=== PATIENT | female | born 1990 | race Caucasian/White ===

== ENCOUNTER 2019-11-25 15:43 | Emergency (ER) | payer OTHER, SELFPAY ==
[2019-11-25 16:31] VITALS: BP 124/76; PULSE 82; RESP 16; TEMP 37.4; O2SAT 99
--- NOTE | 2019-11-25 17:13 | ED.URI ---
HPI - URI/Sore Throat General Chief Complaint: Upper Respiratory Infection Stated Complaint: Cold/Flu symptoms Time Seen by Provider: 11/25/19 16:55 Source: patient and RN notes reviewed Mode of arrival: ambulatory Limitations: no limitations History of Present Illness HPI Narrative: 29-year-old female presents with concern for sore throat, nasal congestion, drainage, hoarseness, body aches, fatigue. Reports symptoms started on Thursday. Reports most symptoms have resolved however she still has a sore throat and hoarseness. Denies taking any medications for symptoms. MD elicited complaint: sore throat Related Data Allergies Allergy/AdvReac Type Severity Reaction Status Date / Time No Known Allergies Allergy Unverified 04/02/18 19:14 Review of Systems Review of Systems: Narrative: CONSTITUTIONAL: Reports malaise. Denies chills, sweats, or fever. EYES: Denies visual changes, redness, or discharge. ENT: Reports rhinorrhea, congestion, sore throat. Denies sinus pain, otalgia. CARDIOVASCULAR: Denies chest pain, palpitations, or edema. RESPIRATORY: Denies cough or dyspnea. GASTROINTESTINAL: Denies abdominal pain, nausea, vomiting, diarrhea SKIN: Denies rash or itching. MUSCULOSKELETAL: Denies myalgia. NEUROLOGIC: Denies headache. All systems reviewed & are unremarkable except as noted in HPI and below PMFSH Comments At time of signature, agree with nursing past medical, surgical, social and family history. There is no relevant family history pertinent to the presenting complaint Exam Narrative: Exam Narrative: GENERAL: Well-appearing, well-nourished, and in no acute distress. HEAD: Normocephalic EYES: PERRLA, conjunctivae clear ENT: Nares clear, turbinates erythematous, clear discharge. Mucous membranes moist. TM pearly curry with sharp light reflex bilaterally; no tragal tenderness. Oropharynx mildly erythematous without lesions. Tonsils not enlarged and without exudate, no drooling, no trismus. Slightly hoarse voice NECK: Supple. No lymphadenopathy CHEST: Clear to auscultation, breath sounds equal. No wheezing, rhonchi, rales, or stridor. No respiratory distress, speaks in full sentences. HEART: Regular rate and rhythm. No murmur heard. Normal peripheral pulses. SKIN: Warm, dry, no rash. NEURO: Alert and oriented x3. PSYCH: Normal mood and affect Course Course Emergency Course: Patient is aware of diagnosis, understands and agrees to treatment plan. Anticipatory guidance given. Patient agrees to follow-up as directed and is aware of reasons to seek care at the emergency department. Portions of this record may have been created with voice recognition software Vital Signs Vital signs: Vital Signs Temperature 99.3 F 11/25/19 16:31 Pulse Rate 82 11/25/19 16:31 Respiratory Rate 16 11/25/19 16:31 Blood Pressure 124/76 11/25/19 16:31 Pulse Oximetry 99 11/25/19 16:31 Temperature 99.3 F 11/25/19 16:31 Pulse Rate 82 11/25/19 16:31 Respiratory Rate 16 11/25/19 16:31 Blood Pressure 124/76 11/25/19 16:31 Pulse Oximetry 99 11/25/19 16:31 Reviewed. MDM - URI/Sore Throat MDM Narrative Medical decision making narrative: Differential diagnosis considered: Strep pharyngitis, allergic rhinitis, upper respiratory tract infection, sinusitis, rhinosinusitis, nasopharyngitis. viral pharyngitis, otitis media, otitis externa, pneumonia, bronchitis, viral cough syndrome, viral syndrome, and influenza. Exam findings show no acute concerns or changes; patient is non-toxic appearing and is in no distress. Patient is appropriate for outpatient treatment and follow-up. Lab Data Labs: Influenza A Screen Negative Reference Range: Negative Influenza B Screen Negative Reference Range: Negative Strep Screen Presumptive Negative *(Reference Range: Negative)* Critical Care Time Critical Care Time Critical Care Time: No Discharge Plan Discharge
== END 2019-11-25 17:24 | disposition home or self-care (01) ==
PROVIDERS: Emergency Provider Nurse Practitioner
DX: J10.1 Influenza due to other identified influenza virus with other respiratory manifestations (principal)
CPT/HCPCS: 87081; 87804; 87880; 99213; G0463

== ENCOUNTER 2020-03-14 16:58 | Emergency (ER) | payer OTHER, SELFPAY ==
[2020-03-14 17:04] VITALS: BP 115/72; PULSE 97; RESP 16; TEMP 37.7; O2SAT 100
--- NOTE | 2020-03-14 17:14 | ED.ABDPAIN ---
HPI - Abdominal Pain General Chief Complaint: Urogenital-Female Stated Complaint: stomach pains Time Seen by Provider: 03/14/20 17:14 Source: patient and RN notes reviewed History of Present Illness HPI narrative: Patient is a 30-year-old female who presents the urgent care with complaints of lower abdominal pain for the last 2 days. Patient also reports of burning with urination. 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 Patient states she is also had a mild low-grade fever. Patient states that she always has terrible periods and is been approximately 2 weeks since her last period. Patient states that she is not actively trying to get and her has had a vasectomy. Patient states that she has never been told that she has fibroids or endometriosis, however her periods are very heavy and she passes large clots . Patient states that she has had the lower left abdominal/pelvic discomfort off and on for the last 3 to 4 days. Patient states she also started to experience some epigastric pain and states that the pain is worse when she lays down. States that she has been eating terrible but nothing completely out of the ordinary. Patient states her last normal bowel movement was last night and she has been passing gas as normal. Patient denies of any pain with intercourse. Patient denies of any nausea or vomiting. Patient denies of any diarrhea. States that her appointment was rescheduled with her TRACK LINER OPERATOR tomorrow. No other acute complaints. No acute distress noted. Patient read the plan of care. Related Data Home Medications Medication Instructions Recorded Confirmed No Home Medications 03/14/20 03/14/20 Allergies Allergy/AdvReac Type Severity Reaction Status Date / Time No Known Allergies Allergy Unverified 03/14/20 17:12 Review of Systems Review of Systems: Narrative: CONSTITUTIONAL: Denies fever, chills, or sweats. EYES: Denies visual changes, redness, or discharge. ENT: Denies rhinorrhea, congestion, sore throat, or otalgia. CARDIOVASCULAR: Denies chest pain, palpitations, or edema. RESPIRATORY: Denies cough or dyspnea. GASTROINTESTINAL: Reports of epigastric pain and lower right abdominal pain GENITOURINARY: Reports of dysuria and mild lower right pelvic discomfort SKIN: Denies rash or itching. MUSCULOSKELETAL: Denies back pain, joint pain, or myalgia. NEUROLOGIC: Denies headache, numbness, or weakness. All other systems reviewed are negative, except as documented in HPI. PMFSH Comments At the time of my signature, I reviewed and agree with the nursing past medical, surgical, social, and family history. There is no relevant family history pertinent to the patient complaint. Exam Narrative: Exam Narrative: GENERAL: This is a well-nourished, well-developed patient, in no apparent distress. HEAD: normocephalic, atraumatic. EYES: PERRL. Sclera clear/white. Vision is grossly intact. EARS: External ears normal NOSE: External nose normal with no obvious nasal discharge, nares without redness, no rhinorrhea. THROAT: Mucous membranes moist NECK: Neck supple GASTROINTESTINAL: Abdomen soft, mild right suprapubic tenderness, mild epigastric tenderness, nondistended. Bowel sounds are active. SKIN: warm, intact with no suspicious lesions or rash, good texture and turgor. NEURO: awake, alert, and oriented to person, place and time. There were no obvious focal neurologic abnormalities. EXTREMITIES: No clubbing, cyanosis, or edema. BACK: Negative bilateral CVA tenderness Course Vital Signs Vital signs: Vital Signs Temperature 99.9 F H 03/14/20 17:04 Pulse Rate 97 03/14/20 17:04 Respiratory Rate 16 03/14/20 17:04 Blood Pressure 115/72 03/14/20 17:04 Pulse Oximetry 100 03/14/20 17:04 Temperature 99.9 F H 03/14/20 17:04 Pulse Rate 97 03/14/20 17:04 Respiratory Rate 16 03/14/20 17:04 Bloo
--- NOTE | 2020-03-14 18:06 | PC.NURSE ---
NO UC ORDERED PER DUANE
== END 2020-03-14 18:07 | disposition home or self-care (01) ==
PROVIDERS: Emergency Provider Nurse Practitioner Family
DX: R10.13 Epigastric pain (principal)
CPT/HCPCS: 81003; 81025; 99213; G0463

== ENCOUNTER 2021-01-13 18:50 | Emergency (ER) | payer OTHER, SELFPAY ==
[2021-01-13 19:00] VITALS: BP 122/71; PULSE 72; RESP 18; O2SAT 100
--- NOTE | 2021-01-13 19:12 | ED.GENADULT ---
HPI - General Adult General Chief complaint: Unspecified Stated complaint: no taste or smell Time Seen by Provider: 01/13/21 19:12 Source: patient and RN notes reviewed Mode of arrival: ambulatory Limitations: no limitations History of Present Illness HPI narrative: 30-year-old female presents with complaints of loss of smell and taste for the past 4 hours. Nhan report attempting to eat jalapeno chips and was unable to taste them tried to eat something else and was able unable to taste or smell it either. No treatment. 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 Denies cough without chest congestion. Denies rhinorrhea and nasal congestion. Exacerbating factors consist of swallowing. No high fevers, chills, or sweats. No nausea, vomiting, diarrhea, and abdominal pain. Tolerating po intake well. Denies chest pain, coughing up blood and rash. The patient reports she have not been diagnosed with COVID-19. The patient reports she is not waiting for the results of a COVID-19 lab test. Denies recent traveling. Nhan has concerns for COVID-19 due to possible exposures At this time, patient is suspected of having COVID-19. Some parts of this dictation were generated by voice recognition software and may contain typographical and/or grammatical inaccuracies. Related Data Home Medications Medication Instructions Recorded Confirmed No Home Medications 03/14/20 01/13/21 Allergies Allergy/AdvReac Type Severity Reaction Status Date / Time No Known Allergies Allergy Verified 01/13/21 19:21 Review of Systems Review of Systems: Narrative: CONSTITUTIONAL: Complains of fever, chills, sweats. EYES: Denies visual changes, redness, discharge. ENT: Complains of loss of taste and smell. Denies rhinorrhea, congestion, sore throat, otalgia. CARDIOVASCULAR: Denies chest pain, palpitations, edema. RESPIRATORY: Denies wheezing, cough. GASTROINTESTINAL: Denies abdominal pain, nausea, vomiting, diarrhea. SKIN: Denies rash or itching. MUSCULOSKELETAL: Denies acute back pain, joint pain, myalgia. NEUROLOGIC: Denies numbness or focal weakness. PSYCHIATRIC: Denies anxiety or depression. All systems reviewed & are unremarkable except as noted in HPI and below. [facility] Past Medical History Medical History (Updated 01/14/21 @ 00:00 by Hernan Davis) No significant past medical history Surgical History Surgical History (Updated 01/13/21 @ 19:33 by SUKHWINDER Zavala) No significant past surgical history Family History Family History (Updated 01/13/21 @ 19:35 by SUKHWINDER Zavala) Father Diabetes mellitus Hypercholesteremia Mother Alive and well Social History Social History (Updated 01/13/21 @ 19:36 by SUKHWINDER Zavala) Smoking status: Never smoker Tobacco type: cigarettes Second hand tobacco smoke exposure: No Alcohol intake: current Substance use: never Living arrangements: with family Additional living arrangements comments: spouse and 2 kids Occupation/Education: occupation 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 There is no relevant family history pertinent to the presenting complaint. Exam Narrative: Exam Narrative: GENERAL: This is a well-nourished, well-developed patient, in no apparent distress. Talks in full sentences and ambulates with steady gait without dyspnea. HEAD: Normocephalic, atraumatic. EYES: PERRL. Sclera clear/white. Vision is grossly intact. NOSE: External nose normal with no obvious nasal discharge, nares with mild redness, no rhinorrhea. THROAT: Mucous membranes moist
[2021-01-15 20:31] LABS: SARS-CoV-2 RNA PCR Negative
== END 2021-01-13 19:50 | disposition home or self-care (01) ==
PROVIDERS: Emergency Provider Nurse Practitioner Family
DX: R43.2 Parageusia (principal); R43.0 Anosmia; Z20.822 Contact with and (suspected) exposure to COVID-19
CPT/HCPCS: 87426; 99213; C9803; G0463; U0003; U0005

== ENCOUNTER 2021-07-03 15:50 | Emergency (ER) | payer OTHER, SELFPAY ==
--- NOTE | 2021-07-03 16:05 | ED.URI ---
HPI - URI/Sore Throat General Chief Complaint: Upper Respiratory Infection Stated Complaint: Congestion/Cough Time Seen by Provider: 07/03/21 16:05 Source: patient and RN notes reviewed History of Present Illness HPI Narrative: Patient is a 31-year-old female who presents the urgent care with complaints of cough and congestion. Patient states the cough is been ongoing for about 3 to 4 days and the congestion started last Thursday. Patient states that she test weekly for Covid at her workplace and it has been negative. Patient states she now has pain with her cough. States that she does see her PCP next week. Denies of any fever, chills, nausea, vomiting. Has not taken anything [id number] for her symptoms. No other acute complaints. No acute distress noted. Patient aware of the plan of care. Some parts of this dictation were generated by voice recognition software and may contain typographical and/or grammatical inaccuracies. Related Data Allergies Allergy/AdvReac Type Severity Reaction Status Date / Time No Known Allergies Allergy Verified 01/13/21 19:21 Review of Systems Review of Systems: CONSTITUTIONAL: Denies fever, chills, or sweats. EYES: Denies visual changes, redness, or discharge. ENT: Denies rhinorrhea, congestion, sore throat, or otalgia. Reports of postnasal drainage CARDIOVASCULAR: Denies chest pain, palpitations, or edema. RESPIRATORY: Reports of chest congestion and cough without dyspnea GASTROINTESTINAL: Denies abdominal pain, nausea, vomiting, or diarrhea. GENITOURINARY: Denies dysuria or hematuria. SKIN: Denies rash or itching. MUSCULOSKELETAL: Denies back pain, joint pain, or myalgia. NEUROLOGIC: Denies headache, numbness, or weakness. All other systems reviewed are negative, except as documented in HPI. [facility] Past Medical History Medical History (Updated 07/03/21 @ 16:37 by SUKHWINDER Gaviria) No significant past medical history Surgical History Surgical History (Updated 01/13/21 @ 19:33 by SUKHWINDER Zavala) No significant past surgical history Family History Family History (Updated 01/13/21 @ 19:35 by SUKHWINDER Zavala) Father Diabetes mellitus Hypercholesteremia Mother Alive and well Social History Social History (Updated 01/13/21 @ 19:36 by VICKI Zavala Smoking status: Never smoker Tobacco type: cigarettes Second hand tobacco smoke exposure: No Alcohol intake: current Substance use: never Additional living arrangements comments: spouse and 2 kids 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 There is no relevant family history pertinent to the patient complaint. Exam Narrative: GENERAL: This is a well-nourished, well-developed patient, in no apparent distress. HEAD: normocephalic, atraumatic. EYES: PERRL. Sclera clear/white. Vision is grossly intact. EARS: External ears normal, auditory canals clear and without drainage, TMs normal without perforation. Hearing grossly intact. NOSE: External nose normal with no obvious nasal discharge, nares without redness, no rhinorrhea. THROAT: Mucous membranes moist, posterior pharynx clear. Mild postnasal drainage NECK: Neck supple CARDIOVASCULAR: Regular rate and rhythm without murmurs, gallops, or rubs. RESPIRATORY: Clear to auscultation. Slightly diminished upper lung sounds. No wheezing. Dry cough on exam SKIN: warm, intact with no suspicious lesions or rash, good texture and turgor. NEURO: awake, alert, and oriented to person, place and time. There were no obvious focal neurologic abnormalities. EXTREMITIES: No clubbing, cyanosis, or edema. Course Vital Signs Vital signs: Vital Signs Temperature 99
[2021-07-03 16:18] VITALS: BP 110/81; PULSE 88; RESP 20; TEMP 37.3; O2SAT 100
[2021-07-03 16:29] VITALS: BP 110/81; PULSE 88; RESP 20; TEMP 37.3; O2SAT 100
== END 2021-07-03 16:53 | disposition home or self-care (01) ==
DX: J40 Bronchitis, not specified as acute or chronic (principal)
CPT/HCPCS: 99213; G0463

== ENCOUNTER 2023-01-16 09:52 | Emergency (ER) | payer OTHER, SELFPAY ==
[2023-01-16 10:03] VITALS: BP 111/62; PULSE 103; RESP 18; TEMP 37.3; O2SAT 100
--- NOTE | 2023-01-16 10:45 | ED.URI ---
HPI - URI/Sore Throat General Chief Complaint: Upper Respiratory Infection Stated Complaint: ears/throat/fever/chills Time Seen by Provider: 01/16/23 10:35 Source: patient, RN notes reviewed and old records reviewed Mode of arrival: ambulatory Limitations: no limitations History of Present Illness HPI Narrative: 32 year old female who presents to [facility] care with complaints of 2 1/2 days of sore throat, fevers, chills and some ear aches. Patient reports that she has been taking Ibuprofen and Tylenol for her symptom, is able to control secretions and denies any dysphagia or problems with her breathing. Patient reports that she has had known exposure to strep from her nephew. Patient reports that she has increased pain with swallowing MD elicited complaint: fever and sore throat Onset (ago): day(s) (2.5 days ago) Pain scale (0-10): 4 Able to tolerate fluids by mouth: Yes Exacerbating factors: swallowing Treatments prior to arrival: acetaminophen and ibuprofen Related Data Allergies Allergy/AdvReac Type Severity Reaction Status Date / Time No Known Allergies Allergy Verified 01/13/21 19:21 Review of Systems Review of Systems: CONSTITUTIONAL: Reports malaise, chills, sweats, or fever. EYES: Denies visual changes, redness, or discharge. ENT: Reports some rhinorrhea, congestion,no sinus pain,positive for otalgia and sore throat. CARDIOVASCULAR: Denies chest pain, palpitations, or edema. RESPIRATORY: Reports no cough.? Denies dyspnea. GASTROINTESTINAL: Denies abdominal pain, nausea, vomiting, diarrhea SKIN: Denies rash or itching. MUSCULOSKELETAL: Denies myalgia. NEUROLOGIC: reports headache. All systems reviewed & are unremarkable except as noted in HPI and below PMFSH Past Medical History Medical History (Updated 01/16/23 @ 10:49 by Latoya Diaz NP) No significant past medical history Surgical History Surgical History (Updated 01/13/21 @ 19:33 by SUKHWINDER Zavala) No significant past surgical history Family History Family History (Updated 01/13/21 @ 19:35 by SUKHWINDER Zavala) Father Diabetes mellitus Hypercholesteremia Mother Alive and well Social History Social History (Updated 01/13/21 @ 19:36 by SUKHWINDER Zavala) Smoking status: Never smoker Tobacco type: cigarettes Second hand tobacco smoke exposure: No Alcohol intake: current Substance use: never Living arrangements: with family Additional living arrangements comments: spouse and 2 kids Occupation/Education: occupation 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 There is no relevant family history pertinent to the presenting complaint Exam Narrative: GENERAL: Well-appearing, well-nourished, and in no acute distress. HEAD: Normocephalic EYES: PERRLA, conjunctivae clear ENT: Nares clear, turbinates edematous and erythematous, clear discharge. Mucous membranes moist. TM pearly curry with dull light reflex bilaterally; no tragal tenderness. Oropharynx erythematous without lesions. Tonsils red enlarged and with white exudate, no drooling, no hoarseness, no trismus, uvula midline. NECK: Supple. lymphadenopathy CHEST: Clear to auscultation, breath sounds equal. No wheezing, rhonchi, rales, or stridor. No respiratory distress, speaks in full sentences.SAO2 100% on room air HEART: Regular rate and rhythm. No murmur heard. SKIN: Warm, dry, no rash. NEURO: Alert and oriented x3. PSYCH: Normal mood and affect Course Course Emergency Course: Patient is aware of diagnosis, understands and agrees to treatment plan.? Anticipatory guidance given.? Patient agrees to follow-up as directed and is aware of reasons to seek care at the emergenc
== END 2023-01-16 10:56 | disposition home or self-care (01) ==
PROVIDERS: Emergency Provider Registered Nurse; PCP Family Medicine
DX: J02.0 Streptococcal pharyngitis (principal)
CPT/HCPCS: 87880; 99213; G0463

== ENCOUNTER 2023-04-24 10:12 | Emergency (ER) | payer OTHER, SELFPAY ==
--- NOTE | 2023-04-24 10:24 | ED.URI ---
HPI - URI/Sore Throat General Chief Complaint: Upper Respiratory Infection Stated Complaint: Sore Throat Time Seen by Provider: 04/24/23 10:37 Source: patient and RN notes reviewed Mode of arrival: ambulatory Limitations: no limitations History of Present Illness HPI Narrative: 33-year-old female presents with concern for sore throat cough that she has had since Thursday. She reports she has had strep throat 3 times this year and was concern for strep. She reports she has some postnasal drainage. She denies body aches, chills, fever, sweats. Denies nausea, headache. She reports she has been taking ibuprofen. MD elicited complaint: cough and sore throat Related Data Allergies Allergy/AdvReac Type Severity Reaction Status Date / Time No Known Allergies Allergy Verified 01/13/21 19:21 Review of Systems Review of Systems: CONSTITUTIONAL: Denies malaise, chills, sweats, or fever. EYES: Denies visual changes, redness, or discharge. ENT: Denies rhinorrhea, congestion, sinus pain, otalgia. Reports postnasal drainage and sore throat. CARDIOVASCULAR: Denies chest pain, palpitations, or edema. RESPIRATORY: Reports cough. Denies dyspnea. GASTROINTESTINAL: Denies abdominal pain, nausea, vomiting, diarrhea SKIN: Denies rash or itching. MUSCULOSKELETAL: Denies myalgia. NEUROLOGIC: Denies headache. All systems reviewed & are unremarkable except as noted in HPI and below PMFSH Past Medical History Medical History (Updated 04/24/23 @ 10:43 by Edie Prado NP) No significant past medical history Surgical History Surgical History (Updated 01/13/21 @ 19:33 by SUKHWINDER Zavala) No significant past surgical history Family History Family History (Updated 01/13/21 @ 19:35 by SUKHWINDER Zavala) Father Diabetes mellitus Hypercholesteremia Mother Alive and well Social History Social History (Updated 01/13/21 @ 19:36 by SUKHWINDER Zavala) Smoking status: Never smoker Tobacco type: cigarettes Second hand tobacco smoke exposure: No Alcohol intake: current Substance use: never Living arrangements: with family Additional living arrangements comments: spouse and 2 kids Occupation/Education: occupation 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 There is no relevant family history pertinent to the presenting complaint Exam Narrative: GENERAL: Well-appearing, well-nourished, and in no acute distress. HEAD: Normocephalic EYES: PERRLA, conjunctivae clear ENT: Nares clear. Mucous membranes moist. TM pearly curry with sharp light reflex bilaterally; no tragal tenderness. Oropharynx not erythematous without lesions. Tonsils not enlarged and without exudate, no drooling, no hoarseness, no trismus, uvula midline. NECK: Supple. No lymphadenopathy CHEST: Clear to auscultation, breath sounds equal. No wheezing, rhonchi, rales, or stridor. No respiratory distress, speaks in full sentences. Cough noted HEART: Regular rate and rhythm. No murmur heard. SKIN: Warm, dry, no rash. NEURO: Alert and oriented x3. PSYCH: Normal mood and affect Course Course Emergency Course: Patient is aware of diagnosis, understands and agrees to treatment plan. Anticipatory guidance given. Patient agrees to follow-up as directed and is aware of reasons to seek care at the emergency department. Portions of this record may have been created with voice recognition software Level of Care: Express Care Visit Vital Signs Vital signs: Reviewed. MDM - URI/Sore Throat MDM Narrative Medical decision making narrative: Differential diagnosis considered: Gaitan virus, strep pharyngitis, allergic rhinitis, upper respiratory tract infection, sinusitis, rhinosinusitis, nasop
== END 2023-04-24 10:49 | disposition home or self-care (01) ==
PROVIDERS: Emergency Provider Nurse Practitioner; PCP Nurse Practitioner Family
DX: J40 Bronchitis, not specified as acute or chronic (principal)
CPT/HCPCS: 87081; 87880; 99213; G0463

== ENCOUNTER 2025-04-02 11:49 | Emergency (ER) | payer OTHER, SELFPAY ==
--- OUTSIDE RECORDS SUMMARY | 2025-04-02 11:51 | XMS_ITS | Patient Health Record ---
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 Role Phone GeorgeDevin Unavailable [phone] Allergies Allergen (clinical drug ingredient) Drug/Non Drug Allergy documented on EMR Reaction Allergy Type Onset Date Status hydroxyzine Hydroxyzine Unknown Drug Allergy Act leslie Results Component Value Reference Range Notes UDT Reviewed date:07/19/2024 09:22:59 AM Interpretation: Performing Lab: Notes/Report: THC neg 0 - 50 ng/ml Cocaine neg 0 - 300 ng/ml Amphetamine neg 0 - 1000 ng/ml Buprenorphine (BUP) neg 0 - 10 ng/ml Secobarbital (Bar) neg 0 - 300 ng/ml Oxazepam (BZO) pos 0 - 300 ng/ml 1-mqtlvaljhh-9,9-kujrkani-0,3-diphenylpyrrolidine (LIAN P) neg 0 - 300 ng/ml Methamphetamine (MET) neg 0 - 1000 ng/ml Methylenedioxymethamphetamine (MDMA) neg 0 - 500 ng/ml Morphine (MOP 300/[id number]) neg 0 - 300 ng/ml Methadone (MTD) neg 0 - 300 ng/ml Phencyclidine (PCP) neg 0 - 25 ng/ml Nortriptyline (TCA) neg 0 - 1000 ng/ml Oxycodone neg 0 - 300 ng/ml x neg 0 - 300 ng/ml Reason For Referral No Information Medications Medication SIG (Take, Route, Frequency, Duration) Notes Start Date End Date Status QUEtiapine Fumarate ER 50 MG 2 tablet at bedtime Orally Once a day; Duration: 90 days take at 7 pm Active Zoloft 50 MG 1.5 tablet Orally On ce a day; Duration: 90 days Active Social History Tobacco Use: Social History Observation Description Date Details (start date - stop date) Never Smoker NA - NA Sex Assigned At : Social History Observation Description Sex Assigned At Female Household Question Answer Notes Number of children in household: She has a 6-year-old and a 9-year-old child Tobacco Control (Standard) Question Answer Notes Tobacco use: Nonsmoker AUDIT-C (Standard) Question Answer Notes Did you have a drink containing alcohol in the p ast year? No Interpretation Negative Problems Problem Type SNOMED Code ICD Code Onset Dates Problem Status W/U Status Risk Notes Problem Brief psychotic disorder (1823278) Brief psychotic disorder (F23) Active confirmed Problem Generalized anxiety disorder (28913492) ALETHA (generalized anxiety disorder) (F41.1) Active confirmed Problem Moderate recurrent major depression (75411592) MDD (major depressive disorder), recurrent episode, moderate (F33.1) Active confirmed Problem Mild recurrent major depression (76795129) MDD (major depressive disorder), recurrent episode, mild (F33.0) Active confirmed Problem Severe major depression, single episode, without psychotic features (32228963) Current severe episode of major depressive disorder without psychotic features without prior episode (F32.2) Active confirmed Problem Insomnia due to mental disorder (46068366) Insomnia due to mental disorder (F51.05) Active confirmed Vital Signs Heart Rate 77 /min 08/10/2024 Blood pressure diastolic 62 mm Hg 08/10/2024 Weight-kg 67.04 kg 08/10/2024 Blood pressure systolic 86 mm Hg 08/10/2024 Weight 147.8 lbs 08/10/2024 Encounters Encounter Location Date Provider Diagnosis [facility] [address] [place] [address] [address] 07/11/2024 Devin Clubb Insomnia due to mental disorder F51.05 ; ALETHA (generalized anxiety disorder) F41.1 and Current severe episode of major depressive disorder without psychotic features without prior episode F32.[address] [address] [place] [address] [address] [facility] [address] [place] [address] 07/14/2024 Devin Clubb Insomnia due to mental disorder F51.05 ; ALETHA (generalized anxiety disorder) F41.1 and Current severe episode of major depressive disorder without psychotic features without prior episode F32.2 [facility] [address] [place] [address] [place] [address] 07/18/2024 Devin Clubb Insomnia due to mental disorder F51.05 ; ALETHA (generalized anxiety disorder) F41.1 ; Current severe episode of major depressive disorder without psychotic features without prior episode F32.2 and Brief psychotic disorder F23 [facility] [employer] [facility], [facility] [address] [place] [address] [place] [address] 07/20/2024 Devin Clubb Insomnia due to mental disorder F51.05 ; ALETHA (generalized anxiety disorder) F41.1 ; Current severe episode of major depressive disorder without psychotic features without prior episode F32.2 and Brief psychotic disorder F23 [facility] [employer] [facility], [place] [address] [place] [address] 07/27/2024 Devin Clubb ALETHA (generalized anxiety disorder) F41.1 ; MDD (major depressive disorder), recurrent episode, moderate F33.1 and Insomnia due to mental disorder F51.05 [employer] [facility], [place] [address] [place] [address] 08/10/2024 Devin Clubb ALETHA (generalized anxiety disorder) F41.1 ; MDD (major depressive disorder), recurrent episode, mild F33.0 and Insomnia due to mental disorder F51.05 [facility] [employer] [facility] [address] [address] [place] [address] 07/18/[address] [facility] [employer] [facility], [place] [address] [address] [place] [address] 08/05/[address] [facility] [employer] [facility] [address] [address] [place] [address] 07/21/2024 Devin Clubb ALETHA (generalized anxiety disorder) F41.1 ; Current severe episode of major depressive disorder without psychotic features without prior episode F32.2 and Insomnia due to mental disorder F51.05 [facility] [employer] [facility] [address] [place] [address] 07/21/[address] [facility] [employer] [facility] [address] [place] [address] 07/21/2024 Devin Clubb Assessments Encounter Date Diagnosis (ICD Code) Assessment Notes Treatment Notes Treatment Clinical Notes Section Notes 07/11/2024 Insomnia due to mental disorder (ICD-10 - F51.05) 1. Insomnia - She reports not sleeping for three days, feeling overwhelmed, anxious, and depressed. - Plan: a. Prescribe Trazodone 50 mg for sleep. b. If ineffective, increase to 100 mg the next day. c. If still ineffective, she to message provider for alternative medication. 2. Anxiety - She reports excessive worrying, difficulty concentrating, distractibility, and panic attacks. - Plan: a. Prescribe Hydroxyzine 25 mg as needed for anxiety, up to three times a day. b. Encourage good sleep hygiene and avoidance of social media before bed. c. Schedule follow-up visit later this week to assess progress. 3. Depressive Symptoms - She reports feeling sad, loss of interest and pleasure in activities, feelings of guilt and worthlessness, and increased irritability. - Plan: a. Assess her sleep and overall condition after initiating sleep and anxiety medications. b. Consider further evaluation for major depressive disorder or other mood disorders in follow-up visit. 4. Sleep Hygiene and Lifestyle - Plan: a. Educate her on importance of sleep hygiene and establishing consistent bedtime routine. b. Encourage avoidance of social media before bed. 5. Counseling - She expresses interest in counseling for anxiety, social media expectations, anger outbursts, and irritability towards children. - Plan: a. Refer her to a therapist for these issues. 6. Blood Work - She has not had blood work since blood transfusions and reports poor appetite and feeling cold. - Plan: a. Order blood tests for vitamin B, vitamin D, thyroid, CBC, and CMP. b. Direct her to get blood work done at [facility] [employer] [employer] or [facility] in [place]. 7. Work and FMLA - She works for [employer] and may need FMLA for mental health stabilization. - Plan: a. Provide doctor's note for current and next appointment. b. Advise her to use PTO for this week. c. Consider FMLA if more time needed for stabilization. 8. Follow-up - Plan: a. Schedule follow-up visit later this week. b. Assess progress after initiating sleep and anxiety medications. c. Reevaluate need for antidepressant treatment or further evaluation for mood disorders. 07/14/2024 Insomnia due to mental disorder (ICD-10 - F51.05) 1. Sleep Disturbance - Experiencing sleep disturbances, partially managed with Trazodone. - Reported improvement with increased dose but experienced headaches. - Slept 4-5 hours with 100mg Trazodone. - Plan: a. Increase Trazodone to 150mg at night. b. Consider switching to Seroquel if headaches become unmanageable. c. Use Ibuprofen 400mg as needed for headaches. d. Monitor and adjust as necessary. 2. Anxiety - Experiencing anxiety; Lorazepam ineffective and caused adverse reactions. - Plan: Continue Lorazepam 0.5mg tablet three times a day as needed. - Advised not necessary to take all doses if anxiety is not present. 3. Depression - Currently on Zoloft 50mg daily for depression. - Plan: Continue Zoloft 50mg daily. - Monitor effectiveness over next 4-6 weeks for improvement in depressive symptoms. 4. Vitamin Deficiencies and Anemia - History of anemia and vitamin deficiencies. - Recent labs showed normal iron levels. - Plan: Review recent lab work to assess current vitamin and iron levels. - Consider supplementation if necessary. 5. General Health and Lab Work - Concerns about overall health and medication effects on lab values. - Plan: Review recent lab work for underlying medical issues. - Provide reassurance about blood work results not changing rapidly with new medications. 6. Safety and Environment - Feels safe at home with supportive family involvement. - Plan: Encourage maintaining stable home environment. - Ensure patient is not isolated. - Promote regular, safe social interactions as tolerated. 7. Follow-up and Monitoring - Ongoing issues with sleep, anxiety, and medication side effects. - Plan: Scheduled follow-up appointment on Thursday to re-evaluate condition. - Encourage use of patient portal for communication and lab result review. 8. FMLA and Work-Related Stress - Experiencing stress impacting ability to work. - Plan: Assist with FMLA paperwork for 3-week leave of absence, potentially extending if necessary. 07/11/2024 ALETHA (generalized anxiety disorder) (ICD-10 - F41.1) 1. Insomnia - She reports not sleeping for three days, feeling overwhelmed, anxious, and depressed. - Plan: a. Prescribe Trazodone 50 mg for sleep. b. If ineffective, increase to 100 mg the next day. c. If still ineffective, she to message provider for alternative medication. 2. Anxiety - She reports excessive worrying, difficulty concentrating, distractibility, and panic attacks. - Plan: a. Prescribe Hydroxyzine 25 mg as needed for anxiety, up to three times a day. b. Encourage good sleep hygiene and avoidance of social media before bed. c. Schedule follow-up visit later this week to assess progress. 3. Depressive Symptoms - She reports feeling sad, loss of interest and pleasure in activities, feelings of guilt and worthlessness, and increased irritability. - Plan: a. Assess her sleep and overall condition after initiating sleep and anxiety medications. b. Consider further evaluation for major depressive disorder or other mood disorders in follow-up visit. 4. Sleep Hygiene and Lifestyle - Plan: a. Educate her on importance of sleep hygiene and establishing consistent bedtime routine. b. Encourage avoidance of social media before bed. 5. Counseling - She expresses interest in counseling for anxiety, social media expectations, anger outbursts, and irritability towards children. - Plan: a. Refer her to a therapist for these issues. 6. Blood Work - She has not had blood work since blood transfusions and reports poor appetite and feeling cold. - Plan: a. Order blood tests for vitamin B, vitamin D, thyroid, CBC, and CMP. b. Direct her to get blood work done at [employer] or [facility] in [place]. 7. Work and FMLA - She works for [employer] and may need FMLA for mental health stabilization. - Plan: a. Provide doctor's note for current and next appointment. b. Advise her to use PTO for this week. c. Consider FMLA if more time needed for stabilization. 8. Follow-up - Plan: a. Schedule follow-up visit later this week. b. Assess progress after initiating sleep and anxiety medications. c. Reevaluate need for antidepressant treatment or further evaluation for mood disorders. 08/10/2024 ALETHA (generalized anxiety disorder) (ICD-10 - F41.1) Assessment and plan reviewed with patient Call for problems with medication, side effects or need for dosage change Compliance issues reviewed Discussed the risks/benefits of this medication Discussed medication side effects Return if symptoms worsen Treatment options reviewed. discussed that it can take weeks to see full therapeutic effects of psychotropic medications. discussed when to seek emergency services. discussed crisis prevention hotline [phone]. marked improvement since getting sleep under control 1. Major Depressive Disorder (MDD) - PHQ-9 score improved from 16 to 7. - Patient rates depression as 3/10. - Continue Sertraline (Zoloft) 75 mg daily (1.5 tablets). 2. Generalized Anxiety Disorder (ALETHA) - ALETHA-7 score improved from 17 to 4. - Patient rates anxiety as 4/10. - Discontinue Propranolol (not being used). - Discontinue Lorazepam (not being used). - Patient manages anxiety through walking and talking to a counselor. 3. Insomnia - Patient reports improved sleep quality. - Continue Quetiapine at current dose. - Patient taking 2 melatonin 2.5 mg nightly (total 5 mg) for sleep onset. - Sleep trackin.5 hours REM, 1 hour 5 minutes deep sleep, 5 hours core sleep. 4. Post-Traumatic Stress Disorder (PTSD) - Patient attending weekly therapy sessions with counselor. - Continue current therapy for PTSD management. 5. Medication side effects - Patient reports occasional headaches, possibly related to Sertraline. - Monitor for improvement or worsening of headaches. 6. Plan - Prescribe 90-day supplies of Sertraline and Quetiapine with no refills. - Discontinue lorazepam and Propranolol. - Encourage continued weekly therapy sessions for mental health support. - Schedule follow-up appointment in 3 months or sooner if needed. - Transition patient to provider upstairs for long-term care. - Patient to continue using [facility] in [place] for prescriptions. 08/10/2024 MDD (major depressive disorder), recurrent episode, mild (ICD-10 - F33.0) marked improvement on anxiety symptoms and depressive symptoms. 1. Major Depressive Disorder (MDD) - PHQ-9 score improved from 16 to 7. - Patient rates depression as 3/10. - Continue Sertraline (Zoloft) 75 mg daily (1.5 tablets). 2. Generalized Anxiety Disorder (ALETHA) - ALETHA-7 score improved from 17 to 4. - Patient rates anxiety as 4/10. - Discontinue Propranolol (not being used). - Discontinue Lorazepam (not being used). - Patient manages anxiety through walking and talking to a counselor. 3. Insomnia - Patient reports improved sleep quality. - Continue Quetiapine at current dose. - Patient taking 2 melatonin 2.5 mg nightly (total 5 mg) for sleep onset. - Sleep trackin.5 hours REM, 1 hour 5 minutes deep sleep, 5 hours core sleep. 4. Post-Traumatic Stress Disorder (PTSD) - Patient attending weekly therapy sessions with counselor. - Continue current therapy for PTSD management. 5. Medication side effects - Patient reports occasional headaches, possibly related to Sertraline. - Monitor for improvement or worsening of headaches. 6. Plan - Prescribe 90-day supplies of Sertraline and Quetiapine with no refills. - Discontinue lorazepam and Propranolol. - Encourage continued weekly therapy sessions for mental health support. - Schedule follow-up appointment in 3 months or sooner if needed. - Transition patient to provider upstairs for long-term care. - Patient to continue using [facility] in [place] for prescriptions. 07/27/2024 ALETHA (generalized anxiety disorder) (ICD-10 - F41.1) 1. Depression PHQ score 16 becks inventory scale: 21 pt rated her depression7 or 8 out of 10. pt reported thoughts of wanting to during her 2 reported panic attacks. plan: increase sertraline from 50 mg daily to 75 mg daily utilize crisis hotline or seek emergency servicies if suicidal thoughts get worse or become unmanageable. 2. anxiety ALETHA score: 17 pt rated her current anxiety as a 4/10 She reported having 2 panic attacks both 30 minutes following the administration of hydroxyzine pt reports diffiuclty concentrating during periods of high anxiety pt reports her had an exacerbation of illness, which she identifies as a recent stressor. Plan: discontinnue hydroxyzine r/t negative reation 30 minutes after administration x 2 occourances start propranolol 10 mg BID PRN. continue Lorazepam Prn. 3. insomnia pt reports marked improvement in sleep after switching from trazodone to quetiapine. she reports waking up once or twice during the night averaging 7 hours per night after the medication switch. plan: d/c trazodone continue quetiapine 50 mg extended release HS at 7 pm. continue sleep hygiene reduce caffeine intake 07/27/2024 MDD (major depressive disorder), recurrent episode, moderate (ICD-10 - F33.1) 1. Depression PHQ score 16 becks inventory scale: 21 pt rated her depression7 or 8 out of 10. pt reported thoughts of wanting to during her 2 reported panic attacks. plan: increase sertraline from 50 mg daily to 75 mg daily utilize crisis hotline or seek emergency servicies if suicidal thoughts get worse or become unmanageable. 2. anxiety ALETHA score: 17 pt rated her current anxiety as a 4/10 She reported having 2 panic attacks both 30 minutes following the administration of hydroxyzine pt reports diffiuclty concentrating during periods of high anxiety pt reports her had an exacerbation of illness, which she identifies as a recent stressor. Plan: discontinnue hydroxyzine r/t negative reation 30 minutes after administration x 2 occourances start propranolol 10 mg BID PRN. continue Lorazepam Prn. 3. insomnia pt reports marked improvement in sleep after switching from trazodone to quetiapine. she reports waking up once or twice during the night averaging 7 hours per night after the medication switch. plan: d/c trazodone continue quetiapine 50 mg extended release HS at 7 pm. continue sleep hygiene reduce caffeine intake 07/21/2024 ALETHA (generalized anxiety disorder) (ICD-10 - F41.1) 07/20/2024 Insomnia due to mental disorder (ICD-10 - F51.05) discussed the importance of sleep hygiene. 1. Insomnia - Reports difficulty falling asleep and staying asleep. - Sleep quality decreased after reducing trazodone dosage. - Did not sleep last night, took a 2.5-hour nap during the day. - Plan: a. Increase trazodone dosage to 2-3 tablets as needed for sleep. b. Encourage use of a sound machine. c. Consider capy-qby-fvaeqwl magnesium supplementation (200-300 mg) for REM sleep. d. Monitor sleep patterns and adjust treatment as necessary. 2. Anxiety and Obsessive Tendencies - Exhibits obsessive tendencies and ruminating thoughts, particularly about sleep. - Feels overwhelmed by environment and constantly thinking about sleep. - Plan: a. Continue Zoloft for anxiety management. b. Encourage follow-up with [facility] therapy provider. c. Monitor anxiety levels. d. Consider increasing Zoloft dosage if no improvement after 4 weeks. 3. Rule out Bipolar Disorder - Experienced recent psychosis induced by insomnia, with some bipolar disorder symptoms. - Reports experiencing delusions and hallucinations during sleep deprivation. - Plan: a. bipolar disorder differential diagnosis, continue to monitor. b. Monitor for future episodes. c. Reevaluate diagnosis if necessary. 4. Medication Management - Discontinued lorazepam use. - Currently taking hydroxyzine as needed for anxiety. - Took hydroxyzine twice yesterday, finding it effective. - Plan: a. Continue to prescribe lorazepam once a day as needed for anxiety. b. Monitor medication usage and effectiveness. c. Adjust as necessary. 5. Follow-up - Schedule follow-up appointment in one week. - Allow for walk-in visits if additional support needed before scheduled appointment. 6. Additional Notes - Current depression rated at 6/10, anxiety at 5/10. - No current thoughts of suicide, self-harm, or harming others. - Reports experiencing disassociation and sensitivity to lights. 07/18/2024 ALETHA (generalized anxiety disorder) (ICD-10 - F41.1) 1. Sleep Disturbance - Patient reports improved sleep, now getting about 8 hours per night. - Plan: a. Continue Zoloft for long-term anxiety management. b. Taper trazodone to 50 mg at night. c. Encourage maintaining regular sleep schedule and avoiding activities during nighttime awakenings. 2. Anxiety - Patient reports reduced anxiety, currently taking lorazepam as needed. - Plan: a. Discontinue scheduled lorazepam use, reserve for panic attacks or severe anxiety episodes. b. Introduce hydroxyzine as non-addictive alternative for anxiety management. c. Continue Zoloft for overall anxiety management. 3. Brain Fog and Grogginess - Likely related to lorazepam and trazodone use. - Plan: a. decrease lorazepam and taper trazodone to minimize grogginess. b. Monitor response to medication adjustments. 4. Decreased Appetite - Possibly related to lorazepam use. - Plan: Discontinue lorazepam and monitor appetite improvement. 5. Return to Work and Daily Routine - Patient currently on medical leave, considering short-term disability. - Plan: a. Set tentative return to work date for August 01. b. Encourage gradual reintegration into daily activities and establishing structured routine. c. Consider short-term disability for 2-3 weeks for medication adjustment and routine normalization. 6. Counseling and Mental Health Evaluation - Plan: a. Refer to walk-in clinic for initial appointment with therapist. b. Reevaluate during next visit to rule out other diagnoses, such as bipolar disorder. 7. Medication Management - Current medications: Zoloft, trazodone, lorazepam; introducing hydroxyzine. - Plan: a. Continue Zoloft for long-term anxiety management. b. Taper down trazodone as sleep normalizes. c. Discontinue scheduled lorazepam use, reserve for severe anxiety episodes. d. Introduce hydroxyzine as non-addictive alternative for anxiety management. e. Monitor response to medication adjustments and refill prescriptions as needed. 8. Additional Assessments - Reassess driving and staying alone with children in a couple of days after discontinuing lorazepam. - Urine sample requested from patient. 07/18/2024 Insomnia due to mental disorder (ICD-10 - F51.05) discussed the importance of sleep hygiene. 1. Sleep Disturbance - Patient reports improved sleep, now getting about 8 hours per night. - Plan: a. Continue Zoloft for long-term anxiety management. b. Taper trazodone to 50 mg at night. c. Encourage maintaining regular sleep schedule and avoiding activities during nighttime awakenings. 2. Anxiety - Patient reports reduced anxiety, currently taking lorazepam as needed. - Plan: a. Discontinue scheduled lorazepam use, reserve for panic attacks or severe anxiety episodes. b. Introduce hydroxyzine as non-addictive alternative for anxiety management. c. Continue Zoloft for overall anxiety management. 3. Brain Fog and Grogginess - Likely related to lorazepam and trazodone use. - Plan: a. decrease lorazepam and taper trazodone to minimize grogginess. b. Monitor response to medication adjustments. 4. Decreased Appetite - Possibly related to lorazepam use. - Plan: Discontinue lorazepam and monitor appetite improvement. 5. Return to Work and Daily Routine - Patient currently on medical leave, considering short-term disability. - Plan: a. Set tentative return to work date for August 01. b. Encourage gradual reintegration into daily activities and establishing structured routine. c. Consider short-term disability for 2-3 weeks for medication adjustment and routine normalization. 6. Counseling and Mental Health Evaluation - Plan: a. Refer to walk-in clinic for initial appointment with therapist. b. Reevaluate during next visit to rule out other diagnoses, such as bipolar disorder. 7. Medication Management - Current medications: Zoloft, trazodone, lorazepam; introducing hydroxyzine. - Plan: a. Continue Zoloft for long-term anxiety management. b. Taper down trazodone as sleep normalizes. c. Discontinue scheduled lorazepam use, reserve for severe anxiety episodes. d. Introduce hydroxyzine as non-addictive alternative for anxiety management. e. Monitor response to medication adjustments and refill prescriptions as needed. 8. Additional Assessments - Reassess driving and staying alone with children in a couple of days after discontinuing lorazepam. - Urine sample requested from patient. 07/14/2024 ALETHA (generalized anxiety disorder) (ICD-10 - F41.1) 1. Sleep Disturbance - Experiencing sleep disturbances, partially managed with Trazodone. - Reported improvement with increased dose but experienced headaches. - Slept 4-5 hours with 100mg Trazodone. - Plan: a. Increase Trazodone to 150mg at night. b. Consider switching to Seroquel if headaches become unmanageable. c. Use Ibuprofen 400mg as needed for headaches. d. Monitor and adjust as necessary. 2. Anxiety - Experiencing anxiety; Lorazepam ineffective and caused adverse reactions. - Plan: Continue Lorazepam 0.5mg tablet three times a day as needed. - Advised not necessary to take all doses if anxiety is not present. 3. Depression - Currently on Zoloft 50mg daily for depression. - Plan: Continue Zoloft 50mg daily. - Monitor effectiveness over next 4-6 weeks for improvement in depressive symptoms. 4. Vitamin Deficiencies and Anemia - History of anemia and vitamin deficiencies. - Recent labs showed normal iron levels. - Plan: Review recent lab work to assess current vitamin and iron levels. - Consider supplementation if necessary. 5. General Health and Lab Work - Concerns about overall health and medication effects on lab values. - Plan: Review recent lab work for underlying medical issues. - Provide reassurance about blood work results not changing rapidly with new medications. 6. Safety and Environment - Feels safe at home with supportive family involvement. - Plan: Encourage maintaining stable home environment. - Ensure patient is not isolated. - Promote regular, safe social interactions as tolerated. 7. Follow-up and Monitoring - Ongoing issues with sleep, anxiety, and medication side effects. - Plan: Scheduled follow-up appointment on Thursday to re-evaluate condition. - Encourage use of patient portal for communication and lab result review. 8. FMLA and Work-Related Stress - Experiencing stress impacting ability to work. - Plan: Assist with FMLA paperwork for 3-week leave of absence, potentially extending if necessary. 07/18/2024 Current severe episode of major depressive disorder without psychotic features without prior episode (ICD-10 - F32.2) 1. Sleep Disturbance - Patient reports improved sleep, now getting about 8 hours per night. - Plan: a. Continue Zoloft for long-term anxiety management. b. Taper trazodone to 50 mg at night. c. Encourage maintaining regular sleep schedule and avoiding activities during nighttime awakenings. 2. Anxiety - Patient reports reduced anxiety, currently taking lorazepam as needed. - Plan: a. Discontinue scheduled lorazepam use, reserve for panic attacks or severe anxiety episodes. b. Introduce hydroxyzine as non-addictive alternative for anxiety management. c. Continue Zoloft for overall anxiety management. 3. Brain Fog and Grogginess - Likely related to lorazepam and trazodone use. - Plan: a. decrease lorazepam and taper trazodone to minimize grogginess. b. Monitor response to medication adjustments. 4. Decreased Appetite - Possibly related to lorazepam use. - Plan: Discontinue lorazepam and monitor appetite improvement. 5. Return to Work and Daily Routine - Patient currently on medical leave, considering short-term disability. - Plan: a. Set tentative return to work date for August 01. b. Encourage gradual reintegration into daily activities and establishing structured routine. c. Consider short-term disability for 2-3 weeks for medication adjustment and routine normalization. 6. Counseling and Mental Health Evaluation - Plan: a. Refer to walk-in clinic for initial appointment with therapist. b. Reevaluate during next visit to rule out other diagnoses, such as bipolar disorder. 7. Medication Management - Current medications: Zoloft, trazodone, lorazepam; introducing hydroxyzine. - Plan: a. Continue Zoloft for long-term anxiety management. b. Taper down trazodone as sleep normalizes. c. Discontinue scheduled lorazepam use, reserve for severe anxiety episodes. d. Introduce hydroxyzine as non-addictive alternative for anxiety management. e. Monitor response to medication adjustments and refill prescriptions as needed. 8. Additional Assessments - Reassess driving and staying alone with children in a couple of days after discontinuing lorazepam. - Urine sample requested from patient. 07/20/2024 ALETHA (generalized anxiety disorder) (ICD-10 - F41.1) 1. Insomnia - Reports difficulty falling asleep and staying asleep. - Sleep quality decreased after reducing trazodone dosage. - Did not sleep last night, took a 2.5-hour nap during the day. - Plan: a. Increase trazodone dosage to 2-3 tablets as needed for sleep. b. Encourage use of a sound machine. c. Consider [id number] magnesium supplementation (200-300 mg) for REM sleep. d. Monitor sleep patterns and adjust treatment as necessary. 2. Anxiety and Obsessive Tendencies - Exhibits obsessive tendencies and ruminating thoughts, particularly about sleep. - Feels overwhelmed by environment and constantly thinking about sleep. - Plan: a. Continue Zoloft for anxiety management. b. Encourage follow-up with [facility] therapy provider. c. Monitor anxiety levels. d. Consider increasing Zoloft dosage if no improvement after 4 weeks. 3. Rule out Bipolar Disorder - Experienced recent psychosis induced by insomnia, with some bipolar disorder symptoms. - Reports experiencing delusions and hallucinations during sleep deprivation. - Plan: a. bipolar disorder differential diagnosis, continue to monitor. b. Monitor for future episodes. c. Reevaluate diagnosis if necessary. 4. Medication Management - Discontinued lorazepam use. - Currently taking hydroxyzine as needed for anxiety. - Took hydroxyzine twice yesterday, finding it effective. - Plan: a. Continue to prescribe lorazepam once a day as needed for anxiety. b. Monitor medication usage and effectiveness. c. Adjust as necessary. 5. Follow-up - Schedule follow-up appointment in one week. - Allow for walk-in visits if additional support needed before scheduled appointment. 6. Additional Notes - Current depression rated at 6/10, anxiety at 5/10. - No current thoughts of suicide, self-harm, or harming others. - Reports experiencing disassociation and sensitivity to lights. 07/21/2024 Current severe episode of major depressive disorder without psychotic features without prior episode (ICD-10 - F32.2) 07/27/2024 Insomnia due to mental disorder (ICD-10 - F51.05) discussed the importance of sleep hygiene. 1. Depression PHQ score 16 becks inventory scale: 21 pt rated her depression7 or 8 out of 10. pt reported thoughts of wanting to during her 2 reported panic attacks. plan: increase sertraline from 50 mg daily to 75 mg daily utilize crisis hotline or seek emergency servicies if suicidal thoughts get worse or become unmanageable. 2. anxiety ALETHA score: 17 pt rated her current anxiety as a 4/10 She reported having 2 panic attacks both 30 minutes following the administration of hydroxyzine pt reports diffiuclty concentrating during periods of high anxiety pt reports her had an exacerbation of illness, which she identifies as a recent stressor. Plan: discontinnue hydroxyzine r/t negative reation 30 minutes after administration x 2 occourances start propranolol 10 mg BID PRN. continue Lorazepam Prn. 3. insomnia pt reports marked improvement in sleep after switching from trazodone to quetiapine. she reports waking up once or twice during the night averaging 7 hours per night after the medication switch. plan: d/c trazodone continue quetiapine 50 mg extended release HS at 7 pm. 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 marked improvement in insomnia 1. Major Depressive Disorder (MDD) - PHQ-9 score improved from 16 to 7. - Patient rates depression as 3/10. - Continue Sertraline (Zoloft) 75 mg daily (1.5 tablets). 2. Generalized Anxiety Disorder (ALETHA) - ALETHA-7 score improved from 17 to 4. - Patient rates anxiety as 4/10. - Discontinue Propranolol (not being used). - Discontinue Lorazepam (not being used). - Patient manages anxiety through walking and talking to a counselor. 3. Insomnia - Patient reports improved sleep quality. - Continue Quetiapine at current dose. - Patient taking 2 melatonin 2.5 mg nightly (total 5 mg) for sleep onset. - Sleep trackin.5 hours REM, 1 hour 5 minutes deep sleep, 5 hours core sleep. 4. Post-Traumatic Stress Disorder (PTSD) - Patient attending weekly therapy sessions with counselor. - Continue current therapy for PTSD management. 5. Medication side effects - Patient reports occasional headaches, possibly related to Sertraline. - Monitor for improvement or worsening of headaches. 6. Plan - Prescribe 90-day supplies of Sertraline and Quetiapine with no refills. - Discontinue lorazepam and Propranolol. - Encourage continued weekly therapy sessions for mental health support. - Schedule follow-up appointment in 3 months or sooner if needed. - Transition patient to provider upstairs for long-term care. - Patient to continue using [facility] in [place] for prescriptions. 07/11/2024 Current severe episode of major depressive disorder without psychotic features without prior episode (ICD-10 - F32.2) 1. Insomnia - She reports not sleeping for three days, feeling overwhelmed, anxious, and depressed. - Plan: a. Prescribe Trazodone 50 mg for sleep. b. If ineffective, increase to 100 mg the next day. c. If still ineffective, she to message provider for alternative medication. 2. Anxiety - She reports excessive worrying, difficulty concentrating, distractibility, and panic attacks. - Plan: a. Prescribe Hydroxyzine 25 mg as needed for anxiety, up to three times a day. b. Encourage good sleep hygiene and avoidance of social media before bed. c. Schedule follow-up visit later this week to assess progress. 3. Depressive Symptoms - She reports feeling sad, loss of interest and pleasure in activities, feelings of guilt and worthlessness, and increased irritability. - Plan: a. Assess her sleep and overall condition after initiating sleep and anxiety medications. b. Consider further evaluation for major depressive disorder or other mood disorders in follow-up visit. 4. Sleep Hygiene and Lifestyle - Plan: a. Educate her on importance of sleep hygiene and establishing consistent bedtime routine. b. Encourage avoidance of social media before bed. 5. Counseling - She expresses interest in counseling for anxiety, social media expectations, anger outbursts, and irritability towards children. - Plan: a. Refer her to a therapist for these issues. 6. Blood Work - She has not had blood work since blood transfusions and reports poor appetite and feeling cold. - Plan: a. Order blood tests for vitamin B, vitamin D, thyroid, CBC, and CMP. b. Direct her to get blood work done at [facility] or [facility] in [place]. 7. Work and FMLA - She works for [employer] and may need FMLA for mental health stabilization. - Plan: a. Provide doctor's note for current and next appointment. b. Advise her to use PTO for this week. c. Consider FMLA if more time needed for stabilization. 8. Follow-up - Plan: a. Schedule follow-up visit later this week. b. Assess progress after initiating sleep and anxiety medications. c. Reevaluate need for antidepressant treatment or further evaluation for mood disorders. 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 Insomnia - Reports difficulty falling asleep and staying asleep. - Sleep quality decreased after reducing trazodone dosage. - Did not sleep last night, took a 2.5-hour nap during the day. - Plan: a. Increase trazodone dosage to 2-3 tablets as needed for sleep. b. Encourage use of a sound machine. c. Consider [id number] magnesium supplementation (200-300 mg) for REM sleep. d. Monitor sleep patterns and adjust treatment as necessary. 2. Anxiety and Obsessive Tendencies - Exhibits obsessive tendencies and ruminating thoughts, particularly about sleep. - Feels overwhelmed by environment and constantly thinking about sleep. - Plan: a. Continue Zoloft for anxiety management. b. Encourage follow-up with [facility] therapy provider. c. Monitor anxiety levels. d. Consider increasing Zoloft dosage if no improvement after 4 weeks. 3. Rule out Bipolar Disorder - Experienced recent psychosis induced by insomnia, with some bipolar disorder symptoms. - Reports experiencing delusions and hallucinations during sleep deprivation. - Plan: a. bipolar disorder differential diagnosis, continue to monitor. b. Monitor for future episodes. c. Reevaluate diagnosis if necessary. 4. Medication Management - Discontinued lorazepam use. - Currently taking hydroxyzine as needed for anxiety. - Took hydroxyzine twice yesterday, finding it effective. - Plan: a. Continue to prescribe lorazepam once a day as needed for anxiety. b. Monitor medication usage and effectiveness. c. Adjust as necessary. 5. Follow-up - Schedule follow-up appointment in one week. - Allow for walk-in visits if additional support needed before scheduled appointment. 6. Additional Notes - Current depression rated at 6/10, anxiety at 5/10. - No current thoughts of suicide, self-harm, or harming others. - Reports experiencing disassociation and sensitivity to lights. 07/18/2024 Brief psychotic disorder (ICD-10 - F23) 1. Sleep Disturbance - Patient reports improved sleep, now getting about 8 hours per night. - Plan: a. Continue Zoloft for long-term anxiety management. b. Taper trazodone to 50 mg at night. c. Encourage maintaining regular sleep schedule and avoiding activities during nighttime awakenings. 2. Anxiety - Patient reports reduced anxiety, currently taking lorazepam as needed. - Plan: a. Discontinue scheduled lorazepam use, reserve for panic attacks or severe anxiety episodes. b. Introduce hydroxyzine as non-addictive alternative for anxiety management. c. Continue Zoloft for overall anxiety management. 3. Brain Fog and Grogginess - Likely related to lorazepam and trazodone use. - Plan: a. decrease lorazepam and taper trazodone to minimize grogginess. b. Monitor response to medication adjustments. 4. Decreased Appetite - Possibly related to lorazepam use. - Plan: Discontinue lorazepam and monitor appetite improvement. 5. Return to Work and Daily Routine - Patient currently on medical leave, considering short-term disability. - Plan: a. Set tentative return to work date for August 01. b. Encourage gradual reintegration into daily activities and establishing structured routine. c. Consider short-term disability for 2-3 weeks for medication adjustment and routine normalization. 6. Counseling and Mental Health Evaluation - Plan: a. Refer to walk-in clinic for initial appointment with therapist. b. Reevaluate during next visit to rule out other diagnoses, such as bipolar disorder. 7. Medication Management - Current medications: Zoloft, trazodone, lorazepam; introducing hydroxyzine. - Plan: a. Continue Zoloft for long-term anxiety management. b. Taper down trazodone as sleep normalizes. c. Discontinue scheduled lorazepam use, reserve for severe anxiety episodes. d. Introduce hydroxyzine as non-addictive alternative for anxiety management. e. Monitor response to medication adjustments and refill prescriptions as needed. 8. Additional Assessments - Reassess driving and staying alone with children in a couple of days after discontinuing lorazepam. - Urine sample requested from patient. 07/14/2024 Current severe episode of major depressive disorder without psychotic features without prior episode (ICD-10 - F32.2) 1. Sleep Disturbance - Experiencing sleep disturbances, partially managed with Trazodone. - Reported improvement with increased dose but experienced headaches. - Slept 4-5 hours with 100mg Trazodone. - Plan: a. Increase Trazodone to 150mg at night. b. Consider switching to Seroquel if headaches become unmanageable. c. Use Ibuprofen 400mg as needed for headaches. d. Monitor and adjust as necessary. 2. Anxiety - Experiencing anxiety; Lorazepam ineffective and caused adverse reactions. - Plan: Continue Lorazepam 0.5mg tablet three times a day as needed. - Advised not necessary to take all doses if anxiety is not present. 3. Depression - Currently on Zoloft 50mg daily for depression. - Plan: Continue Zoloft 50mg daily. - Monitor effectiveness over next 4-6 weeks for improvement in depressive symptoms. 4. Vitamin Deficiencies and Anemia - History of anemia and vitamin deficiencies. - Recent labs showed normal iron levels. - Plan: Review recent lab work to assess current vitamin and iron levels. - Consider supplementation if necessary. 5. General Health and Lab Work - Concerns about overall health and medication effects on lab values. - Plan: Review recent lab work for underlying medical issues. - Provide reassurance about blood work results not changing rapidly with new medications. 6. Safety and Environment - Feels safe at home with supportive family involvement. - Plan: Encourage maintaining stable home environment. - Ensure patient is not isolated. - Promote regular, safe social interactions as tolerated. 7. Follow-up and Monitoring - Ongoing issues with sleep, anxiety, and medication side effects. - Plan: Scheduled follow-up appointment on Thursday to re-evaluate condition. - Encourage use of patient portal for communication and lab result review. 8. FMLA and Work-Related Stress - Experiencing stress impacting ability to work. - Plan: Assist with FMLA paperwork for 3-week leave of absence, potentially extending if necessary. 07/20/2024 Brief psychotic disorder (ICD-10 - F23) 1. Insomnia - Reports difficulty falling asleep and staying asleep. - Sleep quality decreased after reducing trazodone dosage. - Did not sleep last night, took a 2.5-hour nap during the day. - Plan: a. Increase trazodone dosage to 2-3 tablets as needed for sleep. b. Encourage use of a sound machine. c. Consider [id number] magnesium supplementation (200-300 mg) for REM sleep. d. Monitor sleep patterns and adjust treatment as necessary. 2. Anxiety and Obsessive Tendencies - Exhibits obsessive tendencies and ruminating thoughts, particularly about sleep. - Feels overwhelmed by environment and constantly thinking about sleep. - Plan: a. Continue Zoloft for anxiety management. b. Encourage follow-up with [facility] therapy provider. c. Monitor anxiety levels. d. Consider increasing Zoloft dosage if no improvement after 4 weeks. 3. Rule out Bipolar Disorder - Experienced recent psychosis induced by insomnia, with some bipolar disorder symptoms. - Reports experiencing delusions and hallucinations during sleep deprivation. - Plan: a. bipolar disorder differential diagnosis, continue to monitor. b. Monitor for future episodes. c. Reevaluate diagnosis if necessary. 4. Medication Management - Discontinued lorazepam use. - Currently taking hydroxyzine as needed for anxiety. - Took hydroxyzine twice yesterday, finding it effective. - Plan: a. Continue to prescribe lorazepam once a day as needed for anxiety. b. Monitor medication usage and effectiveness. c. Adjust as necessary. 5. Follow-up - Schedule follow-up appointment in one week. - Allow for walk-in visits if additional support needed before scheduled appointment. 6. Additional Notes - Current depression rated at 6/10, anxiety at 5/10. - No current thoughts of suicide, self-harm, or harming others. - Reports experiencing disassociation and sensitivity to lights. 07/11/2024 Other Assessment and plan reviewed with patient Call for problems with medication, side effects or need for dosage change Compliance issues reviewed Discussed the risks/benefits of this medication Discussed medication side effects Return if symptoms worsen Treatment options reviewed. discussed that it can take weeks to see full therapeutic effects of psychotropic medications. discussed when to seek emergency services. discussed crisis prevention hotline [phone]. Learning About Depression Screening material was printed 1. Insomnia - She reports not sleeping for three days, feeling overwhelmed, anxious, and depressed. - Plan: a. Prescribe Trazodone 50 mg for sleep. b. If ineffective, increase to 100 mg the next day. c. If still ineffective, she to message provider for alternative medication. 2. Anxiety - She reports excessive worrying, difficulty concentrating, distractibility, and panic attacks. - Plan: a. Prescribe Hydroxyzine 25 mg as needed for anxiety, up to three times a day. b. Encourage good sleep hygiene and avoidance of social media before bed. c. Schedule follow-up visit later this week to assess progress. 3. Depressive Symptoms - She reports feeling sad, loss of interest and pleasure in activities, feelings of guilt and worthlessness, and increased irritability. - Plan: a. Assess her sleep and overall condition after initiating sleep and anxiety medications. b. Consider further evaluation for major depressive disorder or other mood disorders in follow-up visit. 4. Sleep Hygiene and Lifestyle - Plan: a. Educate her on importance of sleep hygiene and establishing consistent bedtime routine. b. Encourage avoidance of social media before bed. 5. Counseling - She expresses interest in counseling for anxiety, social media expectations, anger outbursts, and irritability towards children. - Plan: a. Refer her to a therapist for these issues. 6. Blood Work - She has not had blood work since blood transfusions and reports poor appetite and feeling cold. - Plan: a. Order blood tests for vitamin B, vitamin D, thyroid, CBC, and CMP. b. Direct her to get blood work done at [facility] or [facility] in [place]. 7. Work and FMLA - She works for [facility] [employer] and may need FMLA for mental health stabilization. - Plan: a. Provide doctor's note for current and next appointment. b. Advise her to use PTO for this week. c. Consider FMLA if more time needed for stabilization. 8. Follow-up - Plan: a. Schedule follow-up visit later this week. b. Assess progress after initiating sleep and anxiety medications. c. Reevaluate need for antidepressant treatment or further evaluation for mood disorders. 07/14/2024 Other Assessment and plan reviewed with patient Call for problems with medication, side effects or need for dosage change Compliance issues reviewed Discussed the risks/benefits of this medication Discussed medication side effects Return if symptoms worsen Treatment options reviewed. discussed that it can take weeks to see full therapeutic effects of psychotropic medications. discussed when to seek emergency services. discussed crisis prevention hotline [phone]. 1. Sleep Disturbance - Experiencing sleep disturbances, partially managed with Trazodone. - Reported improvement with increased dose but experienced headaches. - Slept 4-5 hours with 100mg Trazodone. - Plan: a. Increase Trazodone to 150mg at night. b. Consider switching to Seroquel if headaches become unmanageable. c. Use Ibuprofen 400mg as needed for headaches. d. Monitor and adjust as necessary. 2. Anxiety - Experiencing anxiety; Lorazepam ineffective and caused adverse reactions. - Plan: Continue Lorazepam 0.5mg tablet three times a day as needed. - Advised not necessary to take all doses if anxiety is not present. 3. Depression - Currently on Zoloft 50mg daily for depression. - Plan: Continue Zoloft 50mg daily. - Monitor effectiveness over next 4-6 weeks for improvement in depressive symptoms. 4. Vitamin Deficiencies and Anemia - History of anemia and vitamin deficiencies. - Recent labs showed normal iron levels. - Plan: Review recent lab work to assess current vitamin and iron levels. - Consider supplementation if necessary. 5. General Health and Lab Work - Concerns about overall health and medication effects on lab values. - Plan: Review recent lab work for underlying medical issues. - Provide reassurance about blood work results not changing rapidly with new medications. 6. Safety and Environment - Feels safe at home with supportive family involvement. - Plan: Encourage maintaining stable home environment. - Ensure patient is not isolated. - Promote regular, safe social interactions as tolerated. 7. Follow-up and Monitoring - Ongoing issues with sleep, anxiety, and medication side effects. - Plan: Scheduled follow-up appointment on Thursday to re-evaluate condition. - Encourage use of patient portal for communication and lab result review. 8. FMLA and Work-Related Stress - Experiencing stress impacting ability to work. - Plan: Assist with FMLA paperwork for 3-week leave of absence, potentially extending if necessary. 07/18/2024 Other Assessment and plan reviewed with patient Call for problems with medication, side effects or need for dosage change Compliance issues reviewed Discussed the risks/benefits of this medication Discussed medication side effects Return if symptoms worsen Treatment options reviewed. discussed that it can take weeks to see full therapeutic effects of psychotropic medications. discussed when to seek emergency services. discussed crisis prevention hotline 988. 1. Sleep Disturbance - Patient reports improved sleep, now getting about 8 hours per night. - Plan: a. Continue Zoloft for long-term anxiety management. b. Taper trazodone to 50 mg at night. c. Encourage maintaining regular sleep schedule and avoiding activities during nighttime awakenings. 2. Anxiety - Patient reports reduced anxiety, currently taking lorazepam as needed. - Plan: a. Discontinue scheduled lorazepam use, reserve for panic attacks or severe anxiety episodes. b. Introduce hydroxyzine as non-addictive alternative for anxiety management. c. Continue Zoloft for overall anxiety management. 3. Brain Fog and Grogginess - Likely related to lorazepam and trazodone use. - Plan: a. decrease lorazepam and taper trazodone to minimize grogginess. b. Monitor response to medication adjustments. 4. Decreased Appetite - Possibly related to lorazepam use. - Plan: Discontinue lorazepam and monitor appetite improvement. 5. Return to Work and Daily Routine - Patient currently on medical leave, considering short-term disability. - Plan: a. Set tentative return to work date for August 01. b. Encourage gradual reintegration into daily activities and establishing structured routine. c. Consider short-term disability for 2-3 weeks for medication adjustment and routine normalization. 6. Counseling and Mental Health Evaluation - Plan: a. Refer to walk-in clinic for initial appointment with therapist. b. Reevaluate during next visit to rule out other diagnoses, such as bipolar disorder. 7. Medication Management - Current medications: Zoloft, trazodone, lorazepam; introducing hydroxyzine. - Plan: a. Continue Zoloft for long-term anxiety management. b. Taper down trazodone as sleep normalizes. c. Discontinue scheduled lorazepam use, reserve for severe anxiety episodes. d. Introduce hydroxyzine as non-addictive alternative for anxiety management. e. Monitor response to medication adjustments and refill prescriptions as needed. 8. Additional Assessments - Reassess driving and staying alone with children in a couple of days after discontinuing lorazepam. - Urine sample requested from patient. 07/20/2024 Other Assessment and plan reviewed with patient Call for problems with medication, side effects or need for dosage change Compliance issues reviewed Discussed the risks/benefits of this medication Discussed medication side effects Return if symptoms worsen Treatment options reviewed. discussed that it can take weeks to see full therapeutic effects of psychotropic medications. discussed when to seek emergency services. discussed crisis prevention hotline 988. no refills needed at this time. 1. Insomnia - Reports difficulty falling asleep and staying asleep. - Sleep quality decreased after reducing trazodone dosage. - Did not sleep last night, took a 2.5-hour nap during the day. - Plan: a. Increase trazodone dosage to 2-3 tablets as needed for sleep. b. Encourage use of a sound machine. c. Consider [id number]-[id number] magnesium supplementation (200-300 mg) for REM sleep. d. Monitor sleep patterns and adjust treatment as necessary. 2. Anxiety and Obsessive Tendencies - Exhibits obsessive tendencies and ruminating thoughts, particularly about sleep. - Feels overwhelmed by environment and constantly thinking about sleep. - Plan: a. Continue Zoloft for anxiety management. b. Encourage follow-up with [facility] therapy provider. c. Monitor anxiety levels. d. Consider increasing Zoloft dosage if no improvement after 4 weeks. 3. Rule out Bipolar Disorder - Experienced recent psychosis induced by insomnia, with some bipolar disorder symptoms. - Reports experiencing delusions and hallucinations during sleep deprivation. - Plan: a. bipolar disorder differential diagnosis, continue to monitor. b. Monitor for future episodes. c. Reevaluate diagnosis if necessary. 4. Medication Management - Discontinued lorazepam use. - Currently taking hydroxyzine as needed for anxiety. - Took hydroxyzine twice yesterday, finding it effective. - Plan: a. Continue to prescribe lorazepam once a day as needed for anxiety. b. Monitor medication usage and effectiveness. c. Adjust as necessary. 5. Follow-up - Schedule follow-up appointment in one week. - Allow for walk-in visits if additional support needed before scheduled appointment. 6. Additional Notes - Current depression rated at 6/10, anxiety at 5/10. - No current thoughts of suicide, self-harm, or harming others. - Reports experiencing disassociation and sensitivity to lights. 07/27/2024 Other Assessment and plan reviewed with patient Call for problems with medication, side effects or need for dosage change Compliance issues reviewed Discussed the risks/benefits of this medication Discussed medication side effects Return if symptoms worsen Treatment options reviewed. discussed that it can take weeks to see full therapeutic effects of psychotropic medications. discussed when to seek emergency services. discussed crisis prevention hotline 988. 1. Depression PHQ score 16 becks inventory scale: 21 pt rated her depression7 or 8 out of 10. pt reported thoughts of wanting to during her 2 reported panic attacks. plan: increase sertraline from 50 mg daily to 75 mg daily utilize crisis hotline or seek emergency servicies if suicidal thoughts get worse or become unmanageable. 2. anxiety ALETHA score: 17 pt rated her current anxiety as a 4/10 She reported having 2 panic attacks both 30 minutes following the administration of hydroxyzine pt reports diffiuclty concentrating during periods of high anxiety pt reports her had an exacerbation of illness, which she identifies as a recent stressor. Plan: discontinnue hydroxyzine r/t negative reation 30 minutes after administration x 2 occourances start propranolol 10 mg BID PRN. continue Lorazepam Prn. 3. insomnia pt reports marked improvement in sleep after switching from trazodone to quetiapine. she reports waking up once or twice during the night averaging 7 hours per night after the medication switch. plan: d/c trazodone continue quetiapine 50 mg extended release HS at 7 pm. continue sleep hygiene reduce caffeine intake 08/10/2024 Other pasy psychiatric medication history hydroxyzine- worsened anxiety- now listed as an allergy Lorazepam- used for a short period propranolol- no longer needed. *patient first came for treatment after not sleeping for a period of days. the lack of sleep resulted in paranoia and anxiety attacks.* *discussed the need to be on the current medictions for at least a year to prevent relapse. 1. Major Depressive Disorder (MDD) - PHQ-9 score improved from 16 to 7. - Patient rates depression as 3/10. - Continue Sertraline (Zoloft) 75 mg daily (1.5 tablets). 2. Generalized Anxiety Disorder (ALETHA) - ALETHA-7 score improved from 17 to 4. - Patient rates anxiety as 4/10. - Discontinue Propranolol (not being used). - Discontinue Lorazepam (not being used). - Patient manages anxiety through walking and talking to a counselor. 3. Insomnia - Patient reports improved sleep quality. - Continue Quetiapine at current dose. - Patient taking 2 melatonin 2.5 mg nightly (total 5 mg) for sleep onset. - Sleep trackin.5 hours REM, 1 hour 5 minutes deep sleep, 5 hours core sleep. 4. Post-Traumatic Stress Disorder (PTSD) - Patient attending weekly therapy sessions with counselor. - Continue current therapy for PTSD management. 5. Medication side effects - Patient reports occasional headaches, possibly related to Sertraline. - Monitor for improvement or worsening of headaches. 6. Plan - Prescribe 90-day supplies of Sertraline and Quetiapine with no refills. - Discontinue lorazepam and Propranolol. - Encourage continued weekly therapy sessions for mental health support. - Schedule follow-up appointment in 3 months or sooner if needed. - Transition patient to provider upstairs for long-term care. - Patient to continue using [facility] in [place] for prescriptions. Plan Of Treatment Pending Test Test Name Order Date Vitamin D, 1,25 Dihydroxy 07/11/2024 TSH+FREE T4 (54191) 07/11/2024 COMPREHENSIVE METABOLIC PANEL (38831) CBC (H/H, RBC, INDICES, WBC, PLT) (1759) 07/11/2024 VITAMIN B12 (927) 07/11/2024 UDT 07/11/2024 Insurance Providers Payer Name Payer Address Payer Phone Subscriber Number Group Number Insured Name Patient Relationship to Insured Coverage Start Date Coverage End Date [employer] [address] [place] [address] [id number] hNan Sampson Self - patient is the insured [employer] [address] [place] [phone] [id number] Nhan Sampsno Self - patient is the insured Medical (General) History Medical History History ICD Code Past Psychiatric History: An xiety Disorder,Panic Disorder,Major Depressive Episode abdominal aortic aneurysm: No atrial fibrillation: No chronic fatigue syndrome: Yes essential tremor: No hyperlipidemia: No hypertension: No Parkinson's disease: No restless leg syndrome: No stroke: No subdural hematoma: No type 1 diabetes mellitus: No type 2 diabetes mellitus: No vitamin B12 deficiency: Yes vitamin D deficiency: Yes chronic fatigue syndrome: No undefined vitamin B12 deficiency: No vitamin D deficiency: No Past Psychiatric History: Anxiety Disord er undefined Surgical History Surgery Date(Month/Year) hernia repair pilonidal cyst excision Stacy fundoplication. nerve repair
--- OUTSIDE RECORDS SUMMARY | 2025-04-02 11:52 | XMS_ITS | Clinical Summary ---
Author Organization [facility] Medical Office Building B Address [address] [place] [address] Care Team Providers Care Certified Alcohol Drug Counselor Name Role Phone RosaArnold tian Constantino JOHNSON Primary Care Provider [phone]- [phone] Allergies Active Allergy Reactions Criticality Noted Date Comments Diphenhydramine Other (See comments) Low 08/01/2024 Panic attacks Medications ibuprofen (ADVIL,MOTRIN) 800 mg tablet Take 1 tablet (800 mg total) by mouth every 6 (six) hours as needed Active QUEtiapine XR (SEROquel XR) 50 mg tablet extended release 24 hr Take 1 tablet (50 mg total) by mouth 2 (two) times a day 180 tablet 2 5 Active sertraline (ZOLOFT) 50 mg tablet Take 1.5 tablets (75 mg total) by mouth daily 135 tablet 3 5 Active tretinoin (RETIN-A) 0.05 % cream Apply topically nightly 45 g 5 Active Active Problems Problem Noted Date Diagnosed Date Bipolar 2 disorder, major depressive episode 07/2024 Assessment & Plan (11/11/2024 5:20 PM HOTSHOT SUPERINTENDENT): CHRONIC AND STABLE CONTINUE ZOLOFT 75 MG PO QDAY SEROQUEL 50 MG TWO PO QHS Assessment & Plan (08/08/2024 12:10 PM HOTSHOT SUPERINTENDENT): PT IS GOING BACK TO WORK TODAY SHE IS DOING WELL SHE IS SEEING COUNSELLOR ONCE A WEEK SHE IS SEEING PSYCHIATRY ONCE EVERY THREE WEEKS ON ZOLOFT PLUS SEROQUEL RTC IN THREE MONTHS CBC CMP TODAY Palpitations 02/01/2024 Assessment & Plan (02/01/2024 3:10 PM CDT): See discussion above. No EKG changes. Will plan for event monitor if no significant anemia noted with lab work. Reviewed signs and symptoms warranting and more immediate evaluation. Iron deficiency anemia due to chronic blood loss 10/13/2023 Assessment & Plan (02/01/2024 3:08 PM CDT): Again encouraged patient to start an oral iron supplement. Will check labs today including iron studies prior to prescribing any iron supplement today. Palpitations, fatigue likely related to anemia. Assessment & Plan (10/13/2023 3:52 PM HOTSHOT SUPERINTENDENT): Following receipt of 07/2023 labs recommended patient to start oral iron supplementation and repeat labs with added iron studies. Patient did not start oral iron supplement or have labs repeated. States she has iron supplement and will start as instructed. Physical exam, annual 10/08/2022 Assessment & Plan (10/13/2023 3:53 PM HOTSHOT SUPERINTENDENT): Preventive exam; reviewed recommended preventive screenings and vaccinations. -following with spray dry operator annually Assessment & Plan (10/08/2022 11:12 AM HOTSHOT SUPERINTENDENT): Preventive exam; reviewed recommended preventive screenings and vaccinations. Encourage annual flu vaccine. Wear sunscreen/protective clothing when outdoors. Following with MUSIC RESEARCHER annually. Generalized anxiety disorder 09/18/2021 Assessment & Plan (08/01/2024 6:13 PM HOTSHOT SUPERINTENDENT): THIS IS MY FIRST TIME SEEING HER . THERE IS DEF A COMPNENT OF [facility] WITH AN EPISODE OF JODIE. STABLE ON SEROQUEL AND ZOLOFT WHICH SHE WOULD CONTINUE ALT EAST FOR 6- 9 MONTHS. LABS FOR NEXT VISIT WAS ORDERED WHICH WILL BE IN A WEEK . REFILLS WERE SENT TODAY RECORDS WERE REVIEWED .My total encounter time on 08/01/2024 was 45 minutes which was spent in the activities documented in the note. This includes time spent prior to the visit and after the visit in direct care of the patient. This time does not include time spent in any separately reportable services. Assessment & Plan (02/01/2024 3:09 PM CDT): Notes improvement in mood/anxiety with use of Lexapro 10 mg daily. Will continue present management continue to monitor. Assessment & Plan (10/13/2023 3:58 PM HOTSHOT SUPERINTENDENT): Previously prescribed Lexapro 10 mg daily however patient did not start medication. She states that she honestly does not know why she did not start it she feels she is ready to now. Refilled Lexapro 10 mg daily, instructed patient to start with 5 mg daily for the 1st 1 week. Again discussed the benefits counseling/CBT. Encouraged general healthy lifestyle and stress relieving strategies. Would like for patient to follow-up in the next 3-4 months. Assessment & Plan (10/08/2022 11:13 AM HOTSHOT SUPERINTENDENT): Reviewed pharmacologic treatment options for management of anxiety including SSRI/SNRIs, and non-benzodiazepine anxiolytics. Will start escitalopram 5 mg x 1 week then 10 mg daily. Reviewed medication scheduling and adverse effects. Encouraged patient to engage with counselor, given phone numbers and location of counseling services. Recommend healthy eating and regular exercise. Seek immediate medical attention if experiencing SI/HI. Will continue to monitor. Follow-up in 3 months. Assessment & Plan (09/18/2021 1:19 PM HOTSHOT SUPERINTENDENT): Stable, generally well controlled; patient reports daily symptoms however does not interfere with most daily activities Patient reports episodes of severe panic attack have Will start sertraline 25 mg daily, evaluate for response to therapy evaluated improves generalized anxiety as well as individual situations Menorrhagia with regular cycle 09/18/2021 Assessment & Plan (05/22/2024 10:41 AM CDT): I have discussed treatment options including control pills, the Mirena IUD. Lysteda is an option. Surgical options are available as well including endometrial ablation or hysterectomy. We will call with lab results to discuss further. Assessment & Plan (02/01/2024 3:12 PM CDT): Patient states that she has order for ultrasound and has not scheduled this. I encouraged her again today to schedule her ultrasound. She states periods are still heavy but do not seem quite as heavy as prior months. Assessment & Plan (10/13/2023 3:55 PM HOTSHOT SUPERINTENDENT): Stable/unchanged. Pelvic ultrasound ordered by spray dry operator, patient states that this was unexpectedly canceled and she has never rescheduled. Given the number to call and reschedule, recommended starting with ultrasound as ordered by spray dry operator. Patient is agreeable. Previous discussion/trial with OCPs, however control pills caused increase in headaches/migraines. Endometriosis 09/18/2021 Migraine with aura and witho ut status migrainosus, not intractable 06/26/2020 Overview (06/26/2020): She has been on topiramate in the past for controller Assessment & Plan (09/18/2021 1:20 PM HOTSHOT SUPERINTENDENT): Stable, well controlled; does not require any current medications Will continue to monitor and add prophylactic or episodic treatment based on Patient needs Assessment & Plan (06/26/2020 9:58 AM CDT): HPI: Condition is worsening A&P: Discussed/ordered labs, encouraged healthy, low carbohydrate lifestyle and at least 150min/week of exercise, pt to use ibuprofen 800mg up to 3 times a day as needed for headache, if she continues with chronic migraines, she will followup and may need to start back on topiramate. discussed avoiding all caffeine, no wine, no soda, tea, coffee, chocolate, no sharp cheeses, no processed meats, no hot dogs, no MSG as found in sri lankan food, no more than 1/2 banana a day, no artificial sweeteners, fresh bread (less than 24 hours old); drink lots of water. Resolved Problems Problem Noted Date Diagnosed Date Resolved Date Rh negative state in antepartum period 03/19/2018 06/21/2018 Encounters Date Type Department Care Team Description 02/22/2025 9:15 AM CDT Office Visit [facility] [address] [place] [address] Arnold Lee MD Bipolar 2 disorder, major depressive episode (HCC) (Primary Dx); Generalized anxiety disorder; Physical exam, annual; Endometriosis from Last 3 Months Immunizations Immunization Administration Dates Next Due HPV, Quadrivalent 07/20/2009,03/21/2009,01/20/20 09 Influenza LAIV (Nasal) 06/28/2023(Deferr ed: Patient Refused),06/28/2022(Deferred: Patient Refused) Influenza, Quadrivalent, Spl it, Preservative Free, Intradermal 10/26/2015 Influenza, Quadrivalent, Spl it, Preservative Free, Intramuscular 12/08/2023,06/21/2019,06/23/2018 Influenza, Trivalent, Preser vative Free, Intramuscular 07/28/2012 Influenza, Unspecified 08/01/2024(Deferr ed: Patient Refused),08/01/2024(Deferred: Patient Refused),10/13/2023(Deferred: Patient Refused),05/29/2023(Deferred: Patient Refused),02/02/2023(Deferred: Patient Refused),10/08/2022(Deferred: Patient Refused),05/29/2022(Deferred: Patient Refused),05/29/2022(Deferred: Patient Refused),05/29/2022(Deferred: Patient Refused),06/28/2017 MMR 10/26/2015 PPD TEST 09/22/2017 Tdap 04/16/2018,10/16/2015 Surgical History Surgery Date Site/Laterality Comments OTHER SURGICAL HISTORY 2015 : Medical History Medical History Date Comments Hx Other Medical rectal bleeding Hx Other Medical Complex migrain es started at age 18 Hx Other Medical ; Outc ome: 40W1D week 7lb(s) 11 oz Female Migraines Migraines Anxiety Family History Medical History Relation Name Comments Epilepsy Daughter Diabetes Father Diabetes mellit us; Hypertension Father Other Father Alive and well; Heart attack Maternal Grandfather pacemaker Maternal Grandmother Endometriosis Mother Endometriosis; Hyperlipidemia Mother Other Mother Alive and well; Diabetes Paternal Grandfather Diabete s mellitus; Heart attack Paternal Grandfather Migraines Sister Breast cancer Neg Hx Colon cancer Neg Hx Ovarian cancer Neg Hx Uterine cancer Neg Hx Relation Name Status Comments Daughter Father Alive Maternal Grandfather Maternal Grandmother Mother Alive Paternal Grandfather Sister Alive Social History Tobacco Use Types Packs/Day Years Used Date Smoking Tobacco: Never Smokeless Tobacco: Never Tobacco Cessation:Counseling Given: Not Answered Alcohol Use Standard Drinks/Week Comments No 0 (1 standard drink = 0.6 oz pur e alcohol) AUDIT-C Answer Date Recorded Q1: How often do you have a drink containing alc ohol? 2-4 times a month 02/02/2023 Q2: How many drinks containi ng alcohol do you have on a typical day when you are drinking? 3 or 4 02/02/2023 Q3: How often do you have si x or more drinks on one occasion? Less than monthly 02/02/2023 PHQ-2 Answer Date Recorded PHQ-2 Total Score (If total score is 3 or more points, staff should administer the PHQ-9) 3 08/01/2024 Exercise Vital Sign Answer Date Recorde d On average, how many days pe r week do you engage in moderate to strenuous exercise (like a brisk walk)? 4 days 10/08/2022 On average, how many minutes do you engage in exercise at this level? 50 min 10/08/2022 PHQ-9 Answer Date Recorded PHQ-9 Total Score 9 08/01/2024 Personal Safety Answer Date Recorded Have you ever been in or are you currently in a harmful physical or emotional relationship or is someone making you feel afraid or unsafe? Denies 07/13/2024 Comments No Sex and Gender Information Value Date Recorded Sex Assigned at Not on file Legal Sex Female 10:36 AM HOTSHOT SUPERINTENDENT Gender Identity Not on file Sexual Orientation Not on file Obstetrics History Para Term AB IAB SAB Ectopic Multiple Livin g Live Births 2 2 2 0 2 2 Date Outcome GA Total Labor Labor/2nd/3rd Weight Sex Type Anes PTL Amanda A1 A5 Name Clin 2015 Term 40w 0d 3.487 kg (7 lb 11 oz) F Vag-S pont Epidur al N Livin g Kirit Complications:None 2017 Term 39w 4d 1h 12m 1h 01m/0h 11m 3.398 kg (7 lb 7.9 oz) F Vag-S pont Epidur al N Livin g 9 9 STIMAC ,GIRLA Jake Fernandez MD Delivery Location:This Facil [facility]y ([facility]) Last Filed Vital Signs Vital Sign Reading Time Taken Comments Blood Pressure 102/50 02/22/2025 9:32 AM CDT Pulse 79 02/22/2025 9:32 AM CDT Temperature 36.8 C (98.2 F) 02/22/2025 9:32 AM CDT Respiratory Rate 16 02/22/2025 9:32 AM CDT Oxygen Saturation 99% 02/22/2025 9:32 AM CDT Inhaled Oxygen Concentration - - Weight 65.4 kg (144 lb 3.2 oz) 02/22/2025 9:32 A M CDT Height 168.9 cm (5' 6.5) 02/22/2025 9:32 AM CDT Body Mass Index 22.93 02/22/2025 9:32 AM CDT Plan of Treatment Health Maintenance Due Date Last Done Comments Hepatitis B Screening 02/24/2008 Covid-19 Vaccine ( season) 2024 12/08/2023, 10/01/2021 Cervical Cancer Screening 04/19/20252023, 04/19/2024, 04/08/2023, Additional history exists Regular Well Visit/Exam 18-64 04/19/2025 04/19/2024, 10/13/2023, 04/08/2023, Additional history exists Influenza Vaccine (#1) 2025 , 06/21/2019, 06/23/2018, Additional history exists Depression Screening 08/01/2025 08/01/2024, 08/01/2024, 02/01/2024, Additional history exists DTaP/Tdap/Td Vaccine (3 - Td or Tdap) 04/16/2028 04/16/2018, 10/16/2015 HPV Vaccines Completed 07/20/2009, 02/27, 01/19/2009 Hepatitis C Screening Completed 03/19/2018, 015 Pneumococcal vaccine <65 Aged Out No longer eligible based on patient's age to complete this topic Varicella Vaccines Discontinued Procedures Procedure Name Priority Date/Time Associated Diagnosis Comments HIGH RISK HPV DNA DETECTION WITH GENOTYPING Routine 04/19/2024 4:21 PM CDT Well woman exam HEPATITIS C ANTIBODY Routine 03/19/2018 1:09 PM CDT Encounter for supervision of other normal in first trimester from Last 3 Months or Most Recently Relevant to Health Maintenance Results * High Risk HPV DNA Detection with Genotyping (Molecular component) (04/19/2024 4:21 PM CDT) HPV HR 16 Not Detected Not Detected [facility] Comment:Testing performed by : [facility], [address] [place]., [address] HPV HR 18 Not Detected Not Detected JOSE BOYD Comment:Testing performed by : [facility], [address] [place]., [address] HPV HR Non 16/18 Not Detected Not Detected JOSE Comment: Interpretive Data Nucleic acid amplification for detection of high-risk Human Papilloma virus (HPV) is performed by the Yang Mirtha 6800 HPV test. This assay specifically detects HPV-16 and HPV-18 genotypes. The following HPV genotypes are detected as high-risk HPV: HPV-31, 33, 35, ,39, 45, 51, 52, 56, 58, 59, 66, and 68. This assay has been approved by the [place] Food and Drug Administration for detection of HPV in cervical specimens collected by a physician using an endocervical brush/spatula or cervical broom and placed in the ThinPrep Pap Test PreservCyt collection containers. The performance characteristics of this test have been verified by the [facility] Molecular Infectious Disease laboratory. Correlate with separately reported cytology results, as applicable. Interpretive data last revised 23 Testing performed by: [facility], [address] [place]., [address] Endocervical 04/19/2024 4:21 PM CDT 04/20/2024 12:29 PM CDT [facility] OJSE - 04/20/2024 8:55 PM CDT Clinical history and diagnosis->a Testing type->Screening Last menstrual period (date if known)->a us All Dutton MD LAB BODY FLUIDS AND STOOLS ORDERABLES Final Result Performing Organization Address City/[facility]/ZIP Co de Phone Number JOSE [address] Department [place] [address] BJ * Hepatitis C antibody (03/19/2018 1:09 PM CDT) Hep C Ab Negative Negative JOSE SHANNON (TAMIKO) Comment:Testing performed by : [facility], [address] [place] [address]., [id number] Blood specimen (specimen) 03/19/2018 1:09 PM CDT 03/19/2018 5:46 PM CDT Narrative JOSE SHIVA (TAMIKO) - 03/19/2018 8:17 PM CDT us All Dutton MD LAB MICROBIOLOGY - GENERAL ORDERABLES Final Result Performing Organization Address City/[facility] Co de Phone Number JOSE SHANNON (TAMIKO) 1 [facility] Department [place] [address] from Last 3 Months or Most Recently Relevant to Health Maintenance Insurance [employer] [place] [id number] [employer]ESS [facility] [employer] PLANS Address: [address] [place] [address] [place] [address] [employer] [facility] [employer] Address: [address] [place] [address] [employer] Advance Directives For more information, please contact: [phone] * Full Code (Latest Code Status on File) Date Activated Date Inactivated Comments 06/21/2018 6:32 AM 06/23/2018 3:28 PM Full CPR in case of cardiopulmonary arrest Care Teams Certified Alcohol Drug Counselor Relationship Specialty Start Date End Date Arnold Lee MD [address] [id number] PCP - General Internal Medicine 08/01/24
--- OUTSIDE RECORDS SUMMARY | 2025-04-02 11:52 | XMS_ITS | Referral Summary ---
Author Organization [facility] Medical Office Building B Address [address] [place] [address] Care Team Providers Care Tarper Name Role Phone Arnold Lee MD Primary Care Provider [phone]- [phone] Encounters Date Type Department Care Team Description 02/22/2025 9:15 AM CDT Office Visit [facility] [facility] [address] [place] [phone] Arnold Lee MD Bipolar 2 disorder, major depressive episode (HCC) (Primary Dx); Generalized anxiety disorder; Physical exam, annual; Endometriosis from Last 3 Months Allergies Active Allergy Reactions Criticality Noted Date [...] 07/2024 Assessment & Plan (11/11/2024 5:20 PM FAMILY PRACTICE MEDICAL DOCTOR): CHRONIC AND STABLE CONTINUE ZOLOFT 75 MG PO QDAY SEROQUEL 50 MG TWO PO QHS Assessment & Plan (08/08/2024 12:10 PM FAMILY PRACTICE MEDICAL DOCTOR): PT IS GOING BACK TO WORK TODAY [...] anemia. Assessment & Plan (10/13/2023 3:52 PM FAMILY PRACTICE MEDICAL DOCTOR): Following receipt of 07/2023 labs recommended patient to start oral iron supplementation and repeat labs with added iron studies. Patient did not start oral iron supplement or have labs repeated. States she has iron supplement and will start as instructed. Physical exam, annual 10/08/2022 Assessment & Plan (10/13/2023 3:53 PM FAMILY PRACTICE MEDICAL DOCTOR): Preventive exam; reviewed recommended preventive screenings and vaccinations. -following with ob gyn physician assistant annually Assessment & Plan (10/08/2022 11:12 AM FAMILY PRACTICE MEDICAL DOCTOR): Preventive exam; reviewed recommended preventive screenings and vaccinations. Encourage annual flu vaccine. Wear sunscreen/protective clothing when outdoors. Following with PLANNING LEAD annually. Generalized anxiety disorder 09/18/2021 Assessment & Plan (08/01/2024 6:13 PM FAMILY PRACTICE MEDICAL DOCTOR): THIS IS MY FIRST TIME SEEING HER . THERE IS DEF [facility]. STABLE ON SEROQUEL AND ZOLOFT WHICH SHE WOULD CONTINUE ALT [facility] FOR 6- 9 MONTHS. LABS FOR NEXT [...] monitor. Assessment & Plan (10/13/2023 3:58 PM FAMILY PRACTICE MEDICAL DOCTOR): Previously prescribed Lexapro 10 mg daily however [...] months. Assessment & Plan (10/08/2022 11:13 AM FAMILY PRACTICE MEDICAL DOCTOR): Reviewed pharmacologic treatment options for management of [...] months. Assessment & Plan (09/18/2021 1:19 PM FAMILY PRACTICE MEDICAL DOCTOR): Stable, generally well controlled; patient reports daily [...] months. Assessment & Plan (10/13/2023 3:55 PM FAMILY PRACTICE MEDICAL DOCTOR): Stable/unchanged. Pelvic ultrasound ordered by ob gyn physician assistant, patient states that this was unexpectedly canceled and she has never rescheduled. Given the number to call and reschedule, recommended starting with ultrasound as ordered by ob gyn physician assistant. Patient is agreeable. Previous discussion/trial with OCPs, however control pills caused increase in headaches/migraines. Endometriosis 09/18/2021 Migraine with aura and witho ut status migrainosus, not intractable 06/26/2020 Overview (06/26/2020): She has been on topiramate in the past for controller Assessment & Plan (09/18/2021 1:20 PM FAMILY PRACTICE MEDICAL DOCTOR): Stable, well controlled; does not require any [...] hot dogs, no MSG as found in namibian food, no more than 1/2 banana a day, no artificial sweeteners, fresh bread (less than 24 hours old); drink lots of water. Resolved Problems Problem Noted Date Diagnosed Date Resolved Date Rh negative state in antepartum period 03/19/2018 06/21/2018 Immunizations Immunization Administration Dates Next Due HPV, [...] MMR 10/26/2015 PPD TEST 09/22/2017 Tdap 04/16/2018,10/16/2015 Social History Tobacco Use Types Packs/Day Years [...] on file Legal Sex Female 10:36 AM FAMILY PRACTICE MEDICAL DOCTOR Gender Identity Not on file Sexual Orientation Not on file Last Filed Vital Signs Vital Sign Reading [...] 02/22/2025 9:32 AM CDT Plan of Treatment Not on file Procedures Procedure Name Priority Date/Time Associated Diagnosis [...] HPV HR 16 Not Detected Not Detected [facility] Comment:Testing performed by : [facility], [address] [place]., [address] HPV HR 18 Not Detected Not Detected JOSE BOYD Comment:Testing performed by : [facility], [address] [place]., [address] HPV HR Non 16/18 Not Detected Not Detected JOSE BOYD Comment: Interpretive Data Nucleic acid amplification for [...] this test have been verified by the [facility] Molecular Infectious Disease laboratory. Correlate with separately reported cytology results, as applicable. Interpretive data last revised 23 Testing performed by: [facility], [address] [place]., [address] Endocervical 04/19/2024 4:21 PM CDT 04/20/2024 12:29 PM CDT Narrative JOSE - 04/20/2024 8:55 PM CDT Clinical history and diagnosis->a Testing type->Screening Last menstrual period (date if known)->a us All Dutton MD LAB BODY FLUIDS AND STOOLS ORDERABLES Final Result JOSE BOYD [id number] [address] Department [place] [address] [facility] * Hepatitis C antibody (03/19/2018 1:09 PM CDT) Hep C Ab Negative Negative JOSE SHANNON (TAMIKO) Comment:Testing performed by : [facility], [address] [place] [address], [place]., [address] Blood specimen (specimen) 03/19/2018 1:09 PM CDT 03/19/2018 5:46 PM CDT Narrative JOSE SHANNON (TAMIKO) - 03/19/2018 8:17 PM CDT All Dutton MD LAB MICROBIOLOGY - GENERAL ORDERABLES Final Result JOSE SHANNON (TAMIKO) 1 [facility] [place] [address] from Last 3 Months or Most Recently Relevant to Health Maintenance Insurance [employer] OPEN ACCESS [facility] OPTIONS PPO [employer] OPEN [address]ESS [address] [place], [place] [address]NA [facility] [employer] [facility] Advance Directives For more information, please contact: [phone] * Full Code (Latest Code Status on File) Date Activated Date Inactivated Comments 06/21/2018 6:32 AM 06/23/2018 3:28 PM Full CPR in case of cardiopulmonary arrest Care Teams Tarper Relationship Specialty Start Date End Date Arnold Lee MD [address] [place] [id number] PCP - General Internal Medicine 08/01/24
--- OUTSIDE RECORDS SUMMARY | 2025-04-02 11:52 | XMS_ITS | Clinical Summary ---
Author Organization [facility] Address [address] [place] [address] Phone Care Team Providers Care Palliative Medicine Physician Name Role Phone Unavailable Primary Care Provider Unavailabl e Social History Tobacco Use Types Packs/Day Years Used Date Smoking Tobacco: Never Assessed Comments Unknown Sex and Gender Information Value Date Recorded Sex Assigned at Not on file Legal Sex Female 10:27 AM CDT Gender Identity Not on file Sexual Orientation Not on file Plan of Treatment Health Maintenance Due Date Last Done Comments Hepatitis C Virus (HCV) Screening 1990 TdaP Immunization 1990 Hepatitis B Immunization (1 of 3 - 19+ 3-dose series) 2009 Pap Smear 2011 Cervical Cancer Screening (CCS) 02/24/2020 HPV/Cotest 02/24/2020 Influenza Immunization (#1) 2024 SARS-COV-2 Immunization ( season) 2024 Respiratory Syncytial Virus (RSV) Immunization (Adult) (1 - 1-dose 75+ series) 2065 Meningococcal Immunization (ACWY) Aged Out No longer eligible based on patient's age to complete this topic Pneumococcal Immunization Combined Aged Out No longer eligible based on patient's age to complete this topic Rotavirus Immunization Aged Out No lo nger eligible based on patient's age to complete this topic
--- NOTE | 2025-04-02 11:57 | ED_ITS ---
HPI - Ear Problem General Chief complaint: Ear Stated complaint: Right Jaw/Ear Pain Time Seen by Provider: 04/02/25 11:53 patient presents to Express Care with complaints of right ear pain, right jaw pain, and drooping of right side of face that began this morning. Noted that they did recently just fly and did have some popping in the right ear. no medication remedies attempts of her symptoms. Does have a history of migraines was on Topamax in the past but no Longer on this medication. denies any medication to take for migraines at home usually just use [id number] medications. Denies dizziness, drainage from the ear, nasal congestion, nausea, vomiting, diarrhea. Related Data Allergies Allergy/AdvReac Type Severity Reaction Status Date / Time No Known Allergies Allergy Verified 04/02/25 11:51 Review of Systems Constitutional: Constitutional: Reports no additional constitutional complaints, Denies chills, Denies fatigue, Denies fever(s) and Denies weakness Eyes: Eyes: Reports no additional eye complaints ENT: Reports as per HPI, Denies dysphagia, Denies vertigo, Denies dizziness, Denies epistaxis, Denies nasal congestion and Denies sore throat Comments: Right-sided ear pain, right-sided jaw pain Cardiovascular: Cardiovascular: Reports no additional cardiovascular complaints Respiratory: Respiratory: Reports no additional respiratory complaints Gastrointestinal: Gastrointestinal: Reports no additional gastrointestinal complaints Genitourinary: Genitourinary: Reports no additional female genitourinary complaints Musculoskeletal: Musculoskeletal: Reports as per HPI Comments: right-sided jaw pain Integumentary/Breasts: Skin/Breast: Reports as per HPI, Denies pruritus and Denies erythema Neurologic: Reports as per HPI, Denies confusion, Denies vertigo, Denies dizziness, Denies syncope, Reports headache(s), Denies focal weakness, Denies numbness and Denies weakness Comments: right-sided facial drooping Psychiatric: Psychiatric: Reports no additional psychiatric complaints Endocrine: Endocrine: Reports no additional endocrine complaints Hematologic/Lymphatic: Hematologic/Lymphatic: Reports no additional hematologic/lymphatic complaints Allergic/Immunologic: Allergic/Immunologic: Reports no additional allergic/immunologic complaints [facility] Past Medical History Medical History (Updated 04/02/25 @ 12:25 by JOHN UsC) No significant past medical history Surgical History Surgical History (Updated 01/13/21 @ 19:33 by SUKHWINDER Zavala) No significant past surgical history Family History Family History (Updated 01/13/21 @ 19:35 by SUKHWINDER Zavala) Father Diabetes mellitus Hypercholesteremia Mother Alive and well Social History Social History (Updated 01/13/21 @ 19:36 by SUKHWINDER Zavala) Smoking status: Never smoker Tobacco type: cigarettes Second hand tobacco smoke exposure: No Alcohol intake: current Substance use: never Living arrangements: with family Additional living arrangements comments: spouse and 2 kids Occupation/Education: occupation 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 Gender identity (if verbalized by the patient): Female Sexual Orientation (if Verbalized by the Patient): Straight or Heterosexual Exam Const: General: healthy appearing and no acute distress Nutritional Appearance: well nourished Orientation/consciousness: patient oriented x3 Limitations: no limitations HENMT: Head: normal to inspection Ears: external ears normal and TM's normal bilaterally Face/Nose/Sinus: Normal external nose present and Normal nares present Face and sinus: abnormal facial exam and sinuses nontender Mouth: Yes Normal oral and palatal mucosa present and Yes lip normal Throat: posterior oropharynx normal Eyes: Conjunctivae: conjunctivae normal Pupils: Equal, round and reactive pupils present EOM: EOM not intact bilaterally (right eyelid drooping ) Direct Ophthalmoscopy: no photophobia Neck: Neck: normal visual inspection and no lymphadenopathy Chest: Chest palpation & inspection: normal inspection of the chest Resp: Effort & Inspection: normal respiratory effort Auscultation: clear to auscultation bilaterally Cardio: Rate: regular rate Rhythm: regular rhythm Skin: General skin exam: normal color Rashes: no rashes Wounds: no wounds Neuro: General: oriented to person, oriented to place, oriented to time, patient oriented x3, gait normal, tone normal, moves all extremities ( strength 5/5 bilateral), Normal light touch and pain sensation and no meningeal signs Cranial nerves: Yes CN's II-XII intact bilaterally, Yes facial sensation intact/muscles of mastication intact, Yes Equal, round and reactive pupils present, Yes Normal accommodation reflex present, Yes Bilaterally intact EOM present, Yes Nystagmus not present, No Normal facial strength present (right sided drooping ), No facial symmetry, Yes Normal gag reflex present, Yes Normal hearing present, Yes Ability to bilaterally rotate head present, Yes Ability to bilaterally elevate shoulders present and No Nystagmus present Cognition (Neuro): normal cognition Speech: normal speech Gait exam (Neuro): Normal gait present Motor exam (neuro): 5/5 motor strength present throughout, Pronator motor function not present, No tremor noted, No asterixis, Motor fasciculations not present, Normal motor muscle tone present throughout and Motor abnormalities not present Sensory Exam: normal sensation Coordination: [id number] test normal Other: right-sided facial paralysis- Mild. Extrem: General: normal to inspection, no clubbing, cyanosis or edema and no edema Psych: Mental Status: mental status grossly normal Affect: normal affect Attitude: cooperative Course Course Level of Care: Express Care Visit Vital Signs Vital signs: Vital Signs Temperature 97.7 F 04/02/25 11:59 Pulse Rate 78 04/02/25 11:59 Respiratory Rate 16 04/02/25 11:59 Blood Pressure 128/75 04/02/25 11:59 Pulse Oximetry 100 04/02/25 11:59 Oxygen Delivery Room Air 04/02/25 11:59 Temperature 97.7 F 04/02/25 11:59 Pulse Rate 78 04/02/25 11:59 Respiratory Rate 16 04/02/25 11:59 Blood Pressure 128/75 04/02/25 11:59 Pulse Oximetry 100 04/02/25 11:59 Oxygen Delivery Room Air 04/02/25 11:59 Medical Decision Making MDM Narrative Medical decision making narrative: 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 Will place patient on high-dose steroids also spoke about taping eye shut at bedtime and also using rewetting eyedrops to help due to not being able to shut the right eye. Also noted to use medications for migraines declines Toradol injection while here at the urgent care. Educated patient on several signs and symptoms that we need evaluation in the emergency room. Discharge instructions reviewed with patient, as well as provided in writing per nursing staff. The instructions also include specific and strict return/GO TO THE ER as well as f/u information. All questions have been answered, and the patient deny any further questions w ith discharge and discharge plan. Differential Diagnosis Differential Diagnosis: Migraine, ear infection, Vazquez's palsy, stroke Medical Records Medical records reviewed: Yes I reviewed the external patient's medical records. Vital Signs Vital Signs: Vital Signs Temperature 97.7 F 04/02/25 11:59 Pulse Rate 78 04/02/25 11:59 Respiratory Rate 16 04/02/25 11:59 Blood Pressure 128/75 04/02/25 11:59 Pulse Oximetry 100 04/02/25 11:59 Oxygen Delivery Room Air 04/02/25 11:59 Temperature 97.7 F 04/02/25 11:59 Pulse Rate 78 04/02/25 11:59 Respiratory Rate 16 04/02/25 11:59 Blood Pressure 128/75 04/02/25 11:59 Pulse Oximetry 100 04/02/25 11:59 Oxygen Delivery Room Air 04/02/25 11:59 Discharge Plan Discharge Clinical Impression: Facial paralysis/[place] palsy, Headache Patient Disposition: Home Condition: Stable Instructions: Antibiotic Form, Vazquez Palsy (ED), Acute Headache (ED) Additional Instructions: recommended taking the steroids as directed this will help relieve the inflammation from the house since this is what is causing the paralysis of your face. Recommended taking ibuprofen with food or Tylenol as needed for the headache and jaw pain. If you began to have worsening symptoms significant headache that is not relieved by medication dizziness, vision changes, confusion- go to the emergency room for further evaluation of symptoms. Follow-up with primary care physician in the next several days for further evaluation. Patient Language: Malagasy Prescriptions: New prednisone 50 mg tablet 50 mg PO DAILY Qty: 7 0RF No Action dextromethorphan-guaifenesin [Mucinex DM] 60-1,200 mg tablet extended release 12 hr 1 tablet PO Q12H Qty: 12 0RF methylprednisolone [Medrol (Horacio)] 4 mg tablets,dose pack See Rx Instructions .ROUTE .COMPLEX Qty: 21 0RF Rx Instructions: orally per package directions Follow-up/Referrals: Rosa,MD Arnold [Primary Care Provider] - Time of Disposition: 12:26
[2025-04-02 11:59] VITALS: BP 128/75; PULSE 78; RESP 16; TEMP 36.5; O2SAT 100
== END 2025-04-02 12:37 | disposition home or self-care (01) ==
PROVIDERS: Emergency Provider Nurse Practitioner Family; PCP Internal Medicine Infectious Disease
DX: G51.0 Bell's palsy (principal); R51.9 Headache, unspecified
CPT/HCPCS: 99213; G0463

== ENCOUNTER 2025-09-13 09:42 | Emergency (ER) | payer OTHER, SELFPAY ==
[2025-09-13 09:53] VITALS: BP 112/53; PULSE 94; RESP 16; TEMP 37.3; O2SAT 98
--- NOTE | 2025-09-13 10:19 | ED.URI ---
HPI - URI/Sore Throat General Chief Complaint: Upper Respiratory Infection Stated Complaint: Throat Pains Time Seen by Provider: 09/13/25 10:11 Source: patient and RN notes reviewed Mode of arrival: ambulatory Limitations: no limitations History of Present Illness HPI Narrative: 35-year-old female patient presents today complaining of sore throat, chills, body aches since last night. Currently rates her pain 3/10 and has been taking Tylenol with some mild relief. Denies shortness of breath or difficulty swallowing. Related Data Home Medications ?Medication ?Instructions ?Recorded ?Confirmed ?Last Taken ?Type quetiapine 50 mg tablet,extended mg PO 09/13/25 Unknown History release 24 hr sertraline 50 mg tablet mg 09/13/25 Unknown History Allergies Allergy/AdvReac Type Severity Reaction Status Date / Time No Known Allergies Allergy Verified 09/13/25 10:00 [facility] Past Medical History Medical History (Updated 09/13/25 @ 10:24 by Jamia Gracia APRN, FNP) History of Vazquez's palsy No significant past medical history Surgical History Surgical History (Updated 01/13/21 @ 19:33 by SUKHWINDER Zavala) No significant past surgical history Family History Family History (Updated 01/13/21 @ 19:35 by SUKHWINDER Zavala) Father Diabetes mellitus Hypercholesteremia Mother Alive and well Social History Social History (Updated 01/13/21 @ 19:36 by SUKHWINDER Zavala) Smoking status: Never smoker Tobacco type: cigarettes Second hand tobacco smoke exposure: No Alcohol intake: current Substance use: never Living arrangements: with family Additional living arrangements comments: spouse and 2 kids Occupation/Education: occupation 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 Please see nursing chart for further information. There is no relevant family history pertinent to the presenting complaint Exam Narrative: GENERAL: Mildly ill appearing, well-nourished, and in no acute distress. HEAD: Normocephalic, atraumatic. EYES: EOMI. No redness or drainage. Conjunctivae normal. ENT: Mucous membranes pink and moist. Nares clear. No rhinorrhea. TMs normal bilaterally. Throat erythematous with mild edema. No exudate. Uvula midline. NECK: Normal AROM. Supple. No lymphadenopathy. CHEST: No respiratory distress. Clear to auscultation. HEART: Regular rate and rhythm. No murmur appreciated. EXTREMITIES: Normal range of motion. No edema. SKIN: Warm, dry, no rash. Capillary refill normal. Normal skin turgor. NEURO: No focal deficits. Alert and oriented x3. Gait steady. PSYCH: Normal affect. No signs of depression or anxiety. Course Course Level of Care: Express Care Visit Vital Signs Vital signs: Vital Signs Temperature 99.2 F 09/13/25 09:53 Pulse Rate 94 09/13/25 09:53 Respiratory Rate 16 09/13/25 09:53 Blood Pressure 112/53 L 09/13/25 09:53 Pulse Oximetry 98 09/13/25 09:53 Oxygen Delivery Room Air 09/13/25 09:53 Temperature 99.2 F 09/13/25 09:53 Pulse Rate 94 09/13/25 09:53 Respiratory Rate 16 09/13/25 09:53 Blood Pressure 112/53 L 09/13/25 09:53 Pulse Oximetry 98 09/13/25 09:53 Oxygen Delivery Room Air 09/13/25 09:53 Reviewed [facility] Narrative Medical decision making narrative: 35-year-old female patient presents today complaining of sore throat, chills, body aches since last night. Currently rates her pain 3/10 and has been taking Tylenol with some mild relief. Denies shortness of breath or difficulty swallowing. Upon exam, patient is mildly ill appearing well mildly erythematous throat with mild edema. No exudate. Rapid strep positive. Prescription for amoxicillin sent to pharmacy. Anticipatory guidance given. Differential Diagnosis Differential Diagnosis: URI, pharyngitis, strep throat Lab Data [facility] Lab Attestation statement: I personally reviewed the patient's lab results. Lab results narrative: Rapid strep positive Critical Care Time Critical Care Time Critical Care Time: No Discharge Plan Discharge Clinical Impression: Strep throat Patient Disposition: Home Condition: Stable Instructions: Antibiotic Form, Strep Throat (DC) Additional Instructions: You have tested positive for strep throat. Please take the amoxicillin as prescribed until gone. You will be contagious for 24 hours after starting the medication. Take Tylenol or Ibuprofen for pain or fever, if able. Rest and stay hydrated. Follow up with your PCP in 3 days if symptoms are not improving. Go to the ER immediately if you develop worsening symptoms such as shortness of breath, difficulty swallowing. Patient Language: Thai Prescriptions: New amoxicillin-pot clavulanate 875-125 mg tablet 1 tablet PO Q12H 10 Days Qty: 20 0RF No Action sertraline 50 mg tablet quetiapine 50 mg tablet extended release 24 hr PO Follow-up/Referrals: UNKNOWN,DOCTOR [Primary Care Provider] Time of Disposition: 10:24
--- OUTSIDE RECORDS SUMMARY | 2025-09-13 10:56 | XMS_ITS | Patient Health Record ---
Author Organization [facility] [employer] Address [address] [facility] [address] [place] [address] Care Team Providers Care Employee Benefits Manager Name Role Phone George Devin Unavailable [phone] Allergies Allergen (clinical drug ingredient) Drug/Non Drug Allergy documented on EMR Reaction Allergy Type Onset Date Status hydroxyzine Hydroxyzine Unknown Drug Allergy Act leslie Reason For Referral No Information Medications Medication SIG (Take, Route, Frequency, Duration) Notes Start Date End Date Status QUEtiapine Fumarate ER 50 MG Tablet Extended Release 24 Hour 2 tablet at bedtime Orally Once a day; Duration: 90 days take at 7 pm Active Zoloft 50 MG Tablet 1.5 tablet Orally On ce a day; Duration: 90 days Active Social History Tobacco Use: Social History Observation Description Date Details (start date - stop date) Never Smoker NA - NA Sex Assigned At : Social History Observation Description Sex Assigned At Female Social History Miscellaneous: Social Info Question Answer Notes Advance Care Planning Are you your own decision-maker Yes Do you have Power of Ripening Room Operator for Health or [facility]? Yes Do you have a power of attorney general for health? No Do you have power of attorney general for Medical ? Yes If yes, then please bring the POA paperwork so that we can upload it. Yes Safety issues: Are there any firearms in the house? No Social History Social Info Question Answer Notes Household: Marital Status: Number of Adults in household: 2 Number of Children in Household: 2 Level of Education: Finished College Household: Social Info Question Answer Notes Household Number of children in household: She has a 6-year-old and a 9-year-old child Drug/Alcohol: Social Info Question Answer Notes Drugs Have you used drugs other than those for medical reasons in the past 12 months? No AUDIT-C (Standard) Did you have a drink containing alcohol in the past year? No Interpretation Negative Tobacco Use: Social Info Question Answer Notes Tobacco Control (Standard) Tobacco use: Nonsmoker Additional Details Category Social Info Options Details Miscellaneous: Occupation: [employer] Drug/Alcohol: Do you smoke marijuana? Den ies Do you drink alcohol? 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 Problem Generalized anxiety disorder (60890529) ALETHA (generalized anxiety disorder) (F41.1) Active confirmed Problem Moderate recurrent major depression (80894037) MDD (major depressive disorder), recurrent episode, moderate (F33.1) Active confirmed Problem Mild recurrent major depression (40176134) MDD (major depressive disorder), recurrent episode, mild (F33.0) Active confirmed Problem Severe major depression, single episode, without psychotic features (42019293) Current severe episode of major depressive disorder without psychotic features without prior episode (F32.2) Active confirmed Problem 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) Active confirmed Plan Of Treatment Pending Test Test Name Order Date Vitamin D, 1,25 Dihydroxy 07/11/2024 TSH+FREE T4 (65763) 07/11/2024 COMPREHENSIVE METABOLIC PANEL (87582) CBC (H/H, RBC, INDICES, WBC, PLT) (1759) 07/11/2024 VITAMIN B12 (927) 07/11/2024 UDT 07/11/2024 Insurance Providers Payer Name Payer Address Payer Phone Subscriber Number Group Number Insured Name Patient Relationship to Insured Coverage Start Date Coverage End Date [employer] [address] [place] [address] [id number] Nhan Sampson Self - patient is the insured [email or web address] [address] [place] [address] [id number] Nhan Sampson Self - patient is the insured Medical [...]
--- OUTSIDE RECORDS SUMMARY | 2025-09-13 10:56 | XMS_ITS | Clinical Summary ---
Author Organization [facility] Address [address] [place] [address] Care Team Providers Care Clinic Lpn Name Role Phone Unavailable Primary Care Provider Unavailabl e Source Comments [facility],non-owned Affiliates and Associated Physician Practices is amultiple site organization consisting of ambulatory clinics and hospital sitesin [place], [place], [place]. This disclosure is being madepursuant to the Care Everywhere program and may not contain all information available regarding this patient. 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 Gender Identity Not on file Sexual Orientation Not on file Plan of Treatment Health Maintenance Due Date Last Done Comments HIV SCREENING 2005 HEPATITIS C SCREENING 02/19/2008 DTAP/TDAP/TD VACCINES (1 - Tdap) 2009 HEPATITIS B VACCINE (1 of 3 - 19+ 3-dose series) 2009 PAP SMEAR 2011 HPV VACCINE (1 - 3-dose SCDM series) 2017 DEPRESSION SCREENING 09/28/2024 COVID-19 VACCINE (1 - 2024-2 6 season) 2025 INFLUENZA VACCINE (#1) 2025 ZOSTER VACCINE (1 of 2) 02/24/2040 HIB VACCINE Aged Out No longer eligi ble based on patient's age to complete this topic MENINGOCOCCAL (Group B) VACC INE SHARED DECISION-MAKING Aged Out No longer eligibl e based on patient's age to complete this topic MENINGOCOCCAL GROUPS A/C/Y/W VACCINE Aged Out No longer eligible b ased on patient's age to complete this topic PNEUMOCOCCAL VACCINE Aged Out No long er eligible based on patient's age to complete this topic
--- OUTSIDE RECORDS SUMMARY | 2025-09-13 10:56 | XMS_ITS | Encounter Summary ---
Author Organization [facility] Healthcare Address [address] [place] [address] Care Team Providers Care Web Design Specialist Name Role Phone Arnold Lee MD Primary Care Provider [phone] Encounter Details Date Type Department Care Team (Late st Contact Info) Description 07/25/2025 Results Follow-Up [facility] Medical [facility] at [address] [address] Pantera Thacker NP [address] [place] [address] [address] [place] [address] Pap and High Risk HPV and Genotyping (Cytology Component) Social History Tobacco Use Types Packs/Day Years Used Date Smoking Tobacco: Never Smokeless Tobacco: Never Alcohol Use Standard Drinks/Week Comments No 0 [...] PHQ-2 Answer Date Recorded PHQ-2 Total Score 0 07/20/2025 Exercise Vital Sign Answer Date Recorde d [...] on file 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
--- OUTSIDE RECORDS SUMMARY | 2025-09-13 10:57 | XMS_ITS | Clinical Summary ---
Author Organization [facility] Address [address] [place] [address] Phone Care Team Providers Care Warehouse Handler Name Role Phone Arnold Lee MD Primary Care Provider [phone]- [phone] Social History Tobacco Use Types Packs/Day Years Used Date Smoking Tobacco: Never Assessed Comments Unknown Sex and Gender Information Value Date Recorded Sex Assigned at Not on file Legal Sex Female 10:27 AM CDT Gender Identity Not on file Sexual Orientation Not on file Plan of Treatment Health Maintenance Due Date Last Done Comments Hepatitis C Virus (HCV) Screening 1990 Hepatitis B Immunization (1 of 3 - 19+ 3-dose series) 2009 Pap Smear 2011 Human Papillomavirus (HPV) Immunization (1 - 3-dose SCDM series) 2017 Cervical Cancer Screening (CCS) 02/24/2020 HPV/Cotest 02/24/2020 Influenza Immunization (#1) 05/29/202507/29, 12/08/2023, 06/21/2019, Additional history exists Respiratory Syncytial Virus (RSV) Immunization (Adult) (1 - 1-dose 75+ series) 2065 DTaP/Tdap/Td Immunization Discontinued 04/16/2018, TdaP Immunization Completed 04/16/2018, 10/16/2015 SARS-COV-2 Immunization Completed 08/11/20, 12/08/2023, 10/01/2021 Meningococcal Immunization (ACWY) Aged Out No longer eligible based on patient's age to complete this topic Pneumococcal Immunization Combined Aged Out No longer eligible based on patient's age to complete this topic Rotavirus Immunization Aged Out No lo nger eligible based on patient's age to complete this topic Insurance [employer] Care Teams Warehouse Handler Relationship Specialty Start Date End Date Arnold Lee MD [address] [id number] PCP - General Infectious Disease 04/12/25
--- OUTSIDE RECORDS SUMMARY | 2025-09-13 10:57 | XMS_ITS ---
Author Organization Unknown ENCOUNTERS Encounter Performer Location Date Diagnosis Diagnosis Status Emergency [facility] [address] [address] [id number] RTN Emergency [address] [address] [id number] [facility] Lab [facility], [facility] [address] [place] [address] [id number] RTN Outpatient [facility]ly [facility], [facility] [address] [place] [address] [id number] RTN *Note: Encounters from your own facility or health system may be excluded. Allergies, Adverse Reactions, Alerts Allergen Type Severity Identification Date Medications Name Date Quantity Days Supplied [facility] Number
--- OUTSIDE RECORDS SUMMARY | 2025-09-13 10:57 | XMS_ITS | Clinical Summary ---
Author Organization [facility] B Address [address] [place] [address] Care Team Providers Care Skewer Up Name Role Phone RosaArnold tian Constantino JOHNSON Primary Care Provider [phone]- [phone] Allergies Active Allergy Reactions Criticality Noted Date [...] Active sertraline (ZOLOFT) 50 mg tablet Take 2 tablets (100 mg total) by mouth daily 5 Active tretinoin (RETIN-A) 0.1 % cream Apply topically nightly 135 g 4 5 04/21/20 26 Active Active Problems Problem Noted Date Diagnosed Date Streptococcus infection, group A 05/15/2025 Assessment & Plan (05/15/2025 12:48 PM CDT): Keflex 500 mg po tid for 7 days Acne 04/21/2025 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 Assessment & Plan (10/13/2023 3:52 PM PROSPECTING OBSERVER): Following receipt of 07/2023 labs recommended patient to start oral iron supplementation and repeat labs with added iron studies. Patient did not start oral iron supplement or have labs repeated. States she has iron supplement and will start as instructed. Physical exam, annual 10/08/2022 Assessment & Plan (08/09/2025 11:51 AM PROSPECTING OBSERVER): Immunizations were reviewed today Eye exam and dental uptodate Fall prevention and precautions were reviewed Continue current medication regimen Monitoring and labs reviewed No cogntive decline . Skin assessement with no suspicious lesions. PATIENT WILL CONTINUE TO FOLLOW UP EVERY 4-6 MONTHS OR CLINICALLY INDICATED. MEDICATION ADHERENCE , PREVENTATIVE SCREENINGS. AND C HRONIC CONDITION MANAGEMENT WILL BE MONITORED REGULARLY . PATIENT ADVISED TO CONTACT OFFICE WITH ANY NEW OR WORSENING SYMPTOMS. Assessment & Plan (10/13/2023 3:53 PM PROSPECTING OBSERVER): Preventive exam; reviewed recommended preventive screenings and vaccinations. -following with obstetrician gynecologist annually Assessment & Plan (10/08/2022 11:12 AM PROSPECTING OBSERVER): Preventive exam; reviewed recommended preventive screenings and vaccinations. Encourage annual flu vaccine. Wear sunscreen/protective clothing when outdoors. Following with ORNAMENTAL IRONWORKER annually. Generalized anxiety disorder 09/18/2021 Assessment & Plan (08/01/2024 6:13 PM PROSPECTING OBSERVER): THIS IS MY FIRST TIME SEEING HER [...] monitor. Assessment & Plan (10/13/2023 3:58 PM PROSPECTING OBSERVER): Previously prescribed Lexapro 10 mg daily however [...] months. Assessment & Plan (10/08/2022 11:13 AM PROSPECTING OBSERVER): Reviewed pharmacologic treatment options for management of [...] months. Assessment & Plan (09/18/2021 1:19 PM PROSPECTING OBSERVER): Stable, generally well controlled; patient reports daily symptoms however does not interfere with most daily activities Patient reports episodes of severe panic attack have Will start sertraline 25 mg daily, evaluate for response to therapy evaluated improves generalized anxiety as well as individual situations Menorrhagia with regular cycle 09/18/2021 Assessment & Plan (07/20/2025 11:16 AM CDT): Regular monthly periods lasting 6-7 days, with 3 heavy days. She reports changing her tampon every 2 hours on her heaviest days. She denies symptoms of acute blood loss. She reports that her periods have always been heavy. History of migraines with aura. She declines progestin-only options for cycle control. Scheduled ibuprofen for management of heavy periods discussed, 600 mg every 6 hours. ER precautions reviewed. Assessment & Plan (05/22/2024 10:41 AM CDT): [...] months. Assessment & Plan (10/13/2023 3:55 PM PROSPECTING OBSERVER): Stable/unchanged. Pelvic ultrasound ordered by obstetrician gynecologist, patient states that this was unexpectedly canceled and she has never rescheduled. Given the number to call and reschedule, recommended starting with ultrasound as ordered by obstetrician gynecologist. Patient is agreeable. Previous discussion/trial with OCPs, however control pills caused increase in headaches/migraines. Endometriosis 09/18/2021 Migraine with aura and witho ut status migrainosus, not intractable 06/26/2020 Overview (06/26/2020): She has been on topiramate in the past for controller Assessment & Plan (09/18/2021 1:20 PM PROSPECTING OBSERVER): Stable, well controlled; does not require any [...] hot dogs, no MSG as found in telugu food, no more than 1/2 banana a day, no artificial sweeteners, fresh bread (less than 24 hours old); drink lots of water. Resolved Problems Problem Noted Date Diagnosed Date Resolved Date Rh negative state in antepartum period 03/19/2018 06/21/2018 Encounters Date Type Department Care Team Description 09/06/2025 Telephone [facility] 1 [facility] [address] [place] [phone] Arnold Lee MD Referral Request 08/16/2025 9:00 AM PROSPECTING OBSERVER Therapy [facility] Speech Therapy [address] [place] [address] Yocasta Gaitan, SURGEON ASSISTANT Vazquez's palsy (Primary Dx) 08/09/2025 9:45 AM PROSPECTING OBSERVER Office Visit [facility] 1 [facility] [address] [place] [phone] Arnold Lee MD Physical exam, annual (Primary Dx); Preventative health care; Bipolar 2 disorder, major depressive episode (HCC); Vazquez's palsy 08/09/2025 9:00 AM PROSPECTING OBSERVER Therapy [facility] Speech Therapy [address] [place] [address] Yocasta Gaitan, RAYRAY Vazquez's palsy (Primary Dx) 08/04/2025 9:00 AM PROSPECTING OBSERVER Therapy [facility] Speech Therapy [address] [place] [address] Yocasta Gaitan SLP Vazquez's palsy (Primary Dx) 08/04/2025 Plan of Care Documentation [facility] Speech Therapy [address] [place] [phone] 08/03/2025 Telephone [facility] [address] [place] [address] Arnold Lee MD Exemption for Flu Shot 07/26/2025 9:00 AM CDT Therapy [facility] Speech Therapy [address] [place] [address] Yocasta Gaitan, RAYRAY Vazquez's palsy (Primary Dx) 07/25/2025 Results Follow-Up [facility] at [address] [phone] Pantera Thacker NP Pap and High Risk HPV and Genotyping (Cytology Component) 07/20/2025 11:14 AM CDT - 07/20/2025 11:59 PM CDT Hospital Encounter [address] [address] Well woman exam Discharge Disposition: Discharge to home or self care 07/20/2025 10:00 AM CDT Office Visit [facility] [address] [facility] [address] [place] [address] Pantera Thacker NP Well woman exam (Primary Dx); Candidal dermatitis; Menorrhagia with regular cycle 07/20/2025 9:00 AM CDT Therapy [facility] Speech Therapy [address] [place] [address] Yocasta Gaitan, RAYRAY Vazquez's palsy (Primary Dx) 07/20/2025 Orders Only [facility] at [address] [phone] Pantera Thacker NP 07/17/2025 9:00 AM CDT Therapy [facility] Speech Therapy [address] [place] [address] Yocasta Gaitan, SURGEON ASSISTANT Vazquez's palsy (Primary Dx) 07/12/2025 9:00 AM CDT Therapy [facility] Speech Therapy [address] [place] [phone] Yocasta Gaitan, SURGEON ASSISTANT Vazquez's palsy (Primary Dx) 07/10/2025 11:00 AM CDT Therapy [facility] Speech Therapy [address] [place] [address] Yocasta Gaitan, SURGEON ASSISTANT Vazquez's palsy (Primary Dx) 07/05/2025 9:00 AM CDT Therapy [facility] Speech Therapy [address] [place] [phone] Yocasta Gaitan, SURGEON ASSISTANT Vazquez's palsy (Primary Dx) 07/03/2025 9:00 AM CDT Therapy [facility] Speech Therapy [address] [place] [address] Yocasta Gaitan, SURGEON ASSISTANT Vazquez's palsy (Primary Dx) 06/28/2025 9:00 AM CDT Therapy [facility] Speech Therapy [address] [place] [phone] Yocasta Gaitan, SURGEON ASSISTANT Vazquez's palsy (Primary Dx) 06/26/2025 9:00 AM CDT Therapy [facility] Speech Therapy [address] [place] [address] Yocasta Gaitan, SURGEON ASSISTANT Vazquez's palsy (Primary Dx) 06/22/2025 9:00 AM CDT Therapy [facility] Speech Therapy [address] [place] [phone] Yocasta Gaitan, SURGEON ASSISTANT Vazquez's palsy (Primary Dx) 06/20/2025 11:00 AM CDT Office Visit [facility] [address] [phone] Arnold Lee MD Lyme disease (Primary Dx); Vazquez's palsy 06/16/2025 Telephone [facility] [address] [place] [address] Arnold Lee MD Work note from Last 3 Months Immunizations Immunization Administration Dates Next Due HPV, Quadrivalent 07/20/2009,03/21/2009,01/20/20 09 Influenza LAIV (Nasal) 06/28/2023(Deferr ed: Patient Refused),06/28/2022(Deferred: Patient Refused) Influenza, Quadrivalent, Spl it, Preservative Free, Intradermal 10/26/2015 Influenza, Quadrivalent, Spl it, Preservative Free, Intramuscular 12/08/2023,06/21/2019,06/23/2018 Influenza, Trivalent, Preser vative Free, Intramuscular 08/11/2024,07/28/2012 Influenza, Trivalent, Recomb inant, Egg Free, Preservative Free, Antibiotic Free, IM (FLUBLOK) 08/03/2025 Influenza, Unspecified 08/01/2024(Deferr ed: Patient Refused),08/01/2024(Deferred: Patient [...] 7lb(s) 11 oz Female Migraines Migraines Anxiety Vazquez's palsy 2024 Family History Medical History Relation Name Comments [...] Not Answered Alcohol Use Standard Drinks/Week Comments Yes 1 (1 standard drink = 0.6 oz pur e alcohol) PHQ-2 Answer Date Recorded PHQ-2 Total Score (If total score is 3 or more points, staff should administer the PHQ-9) 0 08/09/2025 Exercise Vital Sign Answer Date Recorde d On average, how many days pe r week do you engage in moderate to strenuous exercise (like a brisk walk)? 4 days 10/08/2022 On average, how many minutes do you engage in exercise at this level? 50 min 10/08/2022 PHQ-9 Answer Date Recorded PHQ-9 Total Score 0 08/09/2025 AUDIT-C Answer Date Recorded Q1: How often do you have a drink containing alc ohol? 2-4 times a month 08/09/2025 Q2: How many drinks containi ng alcohol do you have on a typical day when you are drinking? 1 or 2 08/09/2025 Q3: How often do you have si x or more drinks on one occasion? Never 08/09/2025 Personal Safety Answer Date Recorded Have you ever been in or are you currently in a harmful physical or emotional relationship or is someone making you feel afraid or unsafe? Denies 07/13/2024 Comments No Sex and Gender Information Value Date Recorded Sex Assigned at Not on file Legal Sex Female 10:36 AM PROSPECTING OBSERVER Gender Identity Not on file Sexual Orientation Not on file Obstetrics History Para Term AB IAB SAB Ectopic Multiple Livin g Live Births 2 2 2 0 2 2 Date Outcome GA Total Labor Labor//3rd Weight Sex Type Anes PTL Amanda A1 [...] Sign Reading Time Taken Comments Blood Pressure 100/60 08/09/2025 10:10 AM PROSPECTING OBSERVER Pulse 68 08/09/2025 10:10 AM PROSPECTING OBSERVER Temperature 36.8 C (98.2 F) 08/09/2025 10:10 AM PROSPECTING OBSERVER Respiratory Rate 16 08/09/2025 10:10 AM PROSPECTING OBSERVER Oxygen Saturation 99% 08/09/2025 10:10 AM PROSPECTING OBSERVER Inhaled Oxygen Concentration - - Weight 63.6 kg (140 lb 3.2 oz) 08/09/2025 10:10 AM PROSPECTING OBSERVER Height 167.6 cm (5' 6) 08/09/2025 10:10 AM PROSPECTING OBSERVER Body Mass Index 22.63 08/09/2025 10:10 AM PROSPECTING OBSERVER Plan of Treatment Health Maintenance Due Date Last Done Comments Hepatitis B Screening 02/24/2008 Covid-19 Vaccine ( season) 2025 08/11/2024, 12/08/2023, 10/01/2021 Cervical Cancer Screening 07/20/20262024, 07/20/2025, 04/19/2024, Additional history exists Depression Screening 08/09/2026 08/09/2025, 08/09/2025, 07/20/2025, Additional history exists Regular Well Visit/Exam 18-64 08/09/2026 08/09/2025, 07/20/2025, 04/19/2024, Additional history exists DTaP/Tdap/Td Vaccine (3 - Td or Tdap) 04/16/2028 04/16/2018, 10/16/2015 HPV Vaccines Completed 07/20/2009, 02/27, 01/19/2009 Hepatitis C Screening Completed 03/19/2018, 015 Influenza Vaccine Completed 08/03/2025, , 12/08/2023, Additional history exists Pneumococcal vaccine <65 Aged Out No longer eligible based on patient's age to complete this topic Varicella Vaccines Discontinued Procedures Procedure Name Priority Date/Time Associated Diagnosis Comments PAP AND HIGH RISK HPV, REFLEX TO GENOTYPING Routine 07/20/2025 11:18 AM CDT THINPREP PROCESSING (MOLECULAR COMPONENT) Routine 07/20/2025 11:14 AM CDT Well woman exam HIGH RISK HPV DNA DETECTION WITH GENOTYPING Routine 07/20/2025 8:55 AM CDT HEPATITIS C ANTIBODY Routine 03/19/2018 1:09 PM CDT Encounter for supervision of other normal in first trimester from Last 3 Months or Most Recently Relevant to Health Maintenance Results * Pap and High Risk HPV and Genotyping (Cytology Component) (07/20/2025 11:18 AM CDT) Pap test 07/20/2025 11:1 8 AM CDT 07/20/2025 11:18 AM CDT Narrative 07/24/2025 1:33 PM CDT [facility] Department of Pathology [address] [place] [address] Final Report with Addendum Note to Patients: This report may contain a detailed description of human tissue sent by a health care provider to the laboratory for pathologic evaluation. The content of this report is essential for diagnosis and may provide important critical findings. This information may be unfamiliar to patients to review without a medical professional present. It is advised that the patient review this report in the presence of a health care provider who can answer questions and explain the details. Patient Name: NHAN ANDERSON Address: [address] [place] [phone] Gender: F : 1990 (Age: 35) Service: Location: N : [id number] [facility] #: [id number] Patient Type: SPECIMEN Taken: 07/20/2025 Received: 07/20/2025 Accessioned:: 07/21/2025 Reported: 07/24/2025 Physician(s): MARCOS Salguero NP Diagnosis: SOURCE OF SPECIMEN SCREENING THIN PREP IMAGED PAP w/ HPV: STATEMENT OF ADEQUACY - Satisfactory for evaluation; endocervical/transformation zone component present GENERAL CATEGORIZATION: - Negative for intraepithelial lesion or malignancy INTERPRETATION: - Numerous inflammatory cells present AMANDA Mcdermott(ASCP) Report Electronically Reviewed and Signed Out By AMANDA Mcdermott(ASC) 07/24/2025 13:33:56Addenda: HPV Test Interpretation (Normal-Negative for High Risk HPV) HPV HR 16- Not detected HPV HR 18-Not detected HPV HR non 16/18- Not detected Interpretive Data Nucleic acid amplification for detection of high-risk Human Papilloma virus (HPV) is performed by the Yang Mirtha 6800 HPV test. This assay specifically detects HPV- 16 and HPV-18 genotypes. The following HPV genotypes are detected as high-risk HPV: HPV-31, 33, 35, 39, 45, 51, 52, 56, 58, 59, 66, and 68. This assay has been approved by the [place] Food and Drug Administration for detection of HPV in cervical specimens collected by a physician using an endocervical brush/spatula or cervical broom and placed in the ThinPrep Pap Test PreservCyt collection containers. The performance characteristics of this test have been verified by the [facility] Molecular Infectious Disease laboratory. Correlate with reported cytology results, as applicable. Interpretive data last revised 23 AMANDA Mcdermott(ASC)Report Electronically Reviewed and Signed Out By AMANDA Mcdermott(ASC) 07/25/2025 09:46:40 Specimen(s) Received: A: SCREENING THIN PREP IMAGED PAP w/ HPV Clinical History: Last Menstrual Period: 06/15/25 The Pap test is a screening test used to aid in the detection of cervical cancer and its precursors. It should not be the sole means by which malignant and premalignant lesions are diagnosed. Both false negative and false positive results may occur. It also has poor sensitivity for the detection of endometrial lesions and should not be used to evaluate suspected endometrial abnormalities. For these reasons it is most important to obtain Pap tests at regular intervals. The performance characteristics of some immunohistochemical stains, fluorescence in-situ hybridization tests and immunophenotyping by flow cytometry cited in this report (if any) were determined by the Surgical Pathology Department at [place] [facility] as part of an ongoing quality assurance qa lab analyst program and in compliance with federally mandated regulations drawn from the Clinical Laboratory Improvement Act of 1988 (CLIA '88). Some of these tests rely on the use of analyte specific reagents and are subject to specific labeling requirements by the US Food and Drug Administration. Such diagnostic tests may only be performed in a facility that is certified by the Department of Health and Human Services as a high complexity laboratory under CLIA '88. The FDA has determined that such clearance or approval is not necessary. This test is used for clinical purposes. It should not be regarded as investigational or for research. Nevertheless, federal rules concerning the medical use of analyte specific reagents require that the following disclaimer be attached to the report: This test was developed and its performance characteristics determined by the Surgical Pathology Department [facility]. It has not been cleared or approved by the U. S. Food and Drug Administration. [facility] LAB CYTOLOGY ORDERABLES Final Result * ThinPrep processing (Molecular component) (07/20/2025 11:14 AM CDT) Pathologist [facility] ThinPrep processing (Molecular component) Specimen received for processing. [facility] Comment:Testing performed by : [facility], [address] [place]., [address] Endocervical 07/20/2025 11:1 4 AM CDT 07/21/2025 1:06 PM CDT [facility] LAB BODY FLUIDS AND STO OLS ORDERABLES Final Result JOSE BOYD [address] Department [place] [address] [facility] * High Risk HPV DNA Detection with Genotyping (Molecular component) (07/20/2025 8:55 AM CDT) HPV HR 16 Not Detected Not Detected [facility] Comment:Testing performed by : [facility], 1 [facility] [place]., [address] HPV HR 18 Not Detected Not Detected JOSE BOYD Comment:Testing performed by : [facility], [address] [place] [address]., [id number] HPV HR Non 16/18 Not Detected Not Detected JOSE BOYD Comment: Interpretive Data Nucleic acid amplification for detection of high-risk Human Papilloma virus (HPV) is performed by the Yang Mirhta 6800 HPV test. This assay specifically detects [...] this test have been verified by the [facility] Molecular Infectious Disease laboratory. Correlate with separately reported cytology results, as applicable. Interpretive data last revised 23 Testing performed by: [facility], [address] [place] [address]., [address] Endocervical 07/20/2025 8:55 AM CDT 07/24/2025 9:28 AM CDT Pantera Thacker NP LAB BODY FLUIDS AND STO OLS ORDERABLES Final Result JOSE [address] Department [place] [address] [facility] * Hepatitis C antibody (03/19/2018 1:09 PM CDT) Hep C Ab Negative Negative JOSE SHANNON ([place]) Comment:Testing performed by : [facility], [address] [place] [address]., [id number] Blood specimen (specimen) 03/19/2018 1:09 PM CDT 03/19/2018 5:46 PM CDT Narrative JOSE SHANNON ([place]) - 03/19/2018 8:17 PM CDT All Dutton MD LAB MICROBIOLOGY - GENERAL ORDERABLES Final Result [facility] [place]) [address] [facility] Department [place] [address] from Last 3 Months or Most Recently Relevant to Health Maintenance Insurance bookletmobile OPEN ACCESS [employer] PPO booklet[employer] OPEN ACCESS [facility] [employer] Address: [facility] [address] [place] [address] [place] [address] [facility] [employer] Address: [facility] [address] [place] [address] [facility] OPEN ACCESS Advance Directives For more information, please contact: [phone] * Full Code (Latest Code Status on File) Date Activated Date Inactivated Comments 06/21/2018 6:32 AM 06/23/2018 3:28 PM Full CPR in case of cardiopulmonary arrest Care Teams Skewer Up Relationship Specialty Start Date End Date Arnold Lee MD [address] [place] [address] PCP - General Internal Medicine 08/01/24
--- OUTSIDE RECORDS SUMMARY | 2025-09-13 10:57 | XMS_ITS | Encounter Summary ---
Author Organization [facility] Healthcare Address [address] [place] [address] Care Team Providers Care Script Writer Name Role Phone Arnold Lee MD Primary Care Provider [phone]- [phone] Reason for Visit * Reason Onset Date Comments Referral Request 09/06/2025 Encounter Details Date Type Department Care Team (Late st Contact Info) Description 09/06/2025 Telephone [facility] [address] [place] [phone] Arnold Lee MD [address] [place] [address] Referral Request Social History Tobacco Use Types Packs/Day Years Used Date Smoking Tobacco: Never Smokeless Tobacco: Never Alcohol Use Standard Drinks/Week Comments Yes 1 [...] on file Legal Sex Female 10:36 AM SENIOR CUSTOMER SERVICE REPRESENTATIVE Gender Identity Not on file Sexual Orientation Not on file documented as of this encounter Miscellaneous Notes * Telephone Encounter - Flavia Adhikari RN - 09/08/2025 10:41 AM CST LM for pt to call back. Per TLQ, if for [place] palsy, should go to [facility]. If for aesthetic reasons, [place] or [facility]. OR CUSTOMER SERVICE REPRESENTATIVE * Telephone Encounter - Arnold Lee MD - 09/08/2025 10:12 AM SENIOR CUSTOMER SERVICE REPRESENTATIVE Either [facility] dr quesada in [place] OR CUSTOMER SERVICE REPRESENTATIVE * Telephone Encounter - Flavia Adhikari RN - 09/07/2025 3:34 PM CST See previous message et advise. Next TLQ appt in January 2026 OR CUSTOMER SERVICE REPRESENTATIVE * Telephone Encounter - Marian Williamson - 09/06/2025 4:18 PM CST Patient calling to see if there is a doctor that Dr. HERNANDEZ would recommend pt go to for botox. Please advise Pt cbn: [phone] OR CUSTOMER SERVICE REPRESENTATIVE documented in this encounter Plan of Treatment Not on file documented as of this encounter Visit Diagnoses Not on filedocumented in this encounter Care Teams Script Writer Relationship Specialty Start Date End Date Arnold Lee MD [address] [place] [address] PCP - General Internal Medicine 08/01/24 documented as of this encounter
--- OUTSIDE RECORDS SUMMARY | 2025-09-13 10:57 | XMS_ITS | Encounter Summary ---
Author Organization [facility] Address [address] [place] [address] Phone Care Team Providers Care Hospice Coordinator Name Role Phone Arnold Lee MD Primary Care Provider [phone] Reason for Referral * PT/OT/ST (Routine) - Pending Review Specialty Diagnoses / Procedures Referred By Matthew t Referred To Contact Speech Therapy Diagnoses Vazquez's palsy Arnold Lee MD [address] [place] [address] Phone: tel: fax: [facility] [address] [facility], [address] [address] Phone: tel: fax: Referral ID Status Reason Start Date Expiration Date V isits Requested Visits Authorized [id number] Pending Review 04/12/2025 100 100 Scheduling Instructions Encounter Details Date Type Department Care Team (Late st Contact Info) Description 04/12/2025 Transcribe Orders [facility] [address] [place] [address] Arnold Lee MD [address] [place] [address] [place] [id number] Vazquez's palsy (Primary Dx) Social History Tobacco Use Types Packs/Day Years Used Date Smoking Tobacco: Never Assessed Comments Unknown Sex and Gender Information Value Date Recorded Sex Assigned at Not on file Legal Sex Female 10:27 AM CDT Gender Identity Not on file Sexual Orientation Not on file documented as of this encounter Plan of Treatment Scheduled Referrals Name Type Priority Associated Diagnoses Orde r Schedule SPEECH THERAPY REFERRAL Outpatient Referral Routine Vazquez's palsy Expected: 04/12/2025, Expires: 04/12/2026 documented as of this encounter Visit Diagnoses Diagnosis Vazquez's palsy- Primary documented in this encounter Care Teams Hospice Coordinator Relationship Specialty Start Date End Date Arnold Lee MD [address] [place] [place] [id number] PCP - General Infectious Disease 04/12/25 documented as of this encounter
[2025-09-13 11:02] LABS: EDSTREPNEGPOS1 Positive (Negative)
== END 2025-09-13 10:30 | disposition home or self-care (01) ==
PROVIDERS: Emergency Provider Nurse Practitioner
DX: J02.0 Streptococcal pharyngitis (principal)
CPT/HCPCS: 87880; 99213; G0463